=== PATIENT | female | born 1965 | race African-American/Black ===

== ENCOUNTER 2019-02-27 18:11 | Inpatient (IN) | payer OTHER ==
[2019-02-27 19:10] VITALS: BMI 31.7
[2019-02-27] MEDS ORDERED: IBUPROFEN 400 MG TABLET (FP) PO PRN (20:00)
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
[2019-02-27] MEDS ORDERED: HYDROCORTISONE 1% TOPICAL OINT 30 GM TUBE TP PRN (20:09)
[2019-02-27] MEDS ORDERED: ACETAMINOPHEN 325 MG TABLET (FP) PO PRN ×2 (21:18)
[2019-02-27] MEDS ORDERED: BISMUTH SUBSALICYLATE 524 MG/30 ML UD PO PRN (21:18)
[2019-02-27] MEDS ORDERED: hydrOXYzine PAMOATE 25 MG CAPSULE (FP) PO PRN (21:18)
[2019-02-27] MEDS ORDERED: LORazepam 1 MG TABLET PO PRN (21:18)
[2019-02-27] MEDS ORDERED: MELATONIN 5 MG TABLETS PO PRN (21:18)
[2019-02-27] MEDS ORDERED: MENTHOL/PHENOL 1 EACH UD MM PRN (21:18)
[2019-02-27] MEDS ORDERED: MAG HYDROX/AL HYDROX/SIMETH 30 ML UNIT-DOSE CUP PO PRN (21:18)
[2019-02-27] MEDS ORDERED: MAGNESIUM CITRATE 300 ML BOTTLE PO PRN (21:18)
[2019-02-27] MEDS ORDERED: MAGNESIUM HYDROX 2400MG/30ML ORAL SUSPENSION 30 ML CUP PO PRN (21:18)
--- NOTE | 2019-02-27 22:17 | PN ---
S Progress Note Note: Vital Signs Temperature 97.2 F L 02/27/19 19:38 Pulse Rate 87 02/27/19 19:38 Respiratory Rate 16 02/27/19 19:38 Blood Pressure 130/90 02/27/19 19:38 O2 Sat by Pulse Oximetry (%) EKG abnormal re: prolong QT BPM 78 QTc 460/524 asymptomatic repeat EKG in the AM d/c vistaril
[2019-02-27] MEDS: LORazepam 2 MG TABLET PO SCH (22:18)
[2019-02-27] MEDS: THIAMINE HCL 100 MG TABLET (FP) PO SCH (22:18)
[2019-02-27] MEDS: diphenhydrAMINE HCL 25 MG CAPSULE (FP) PO PRN (22:18)
[2019-02-27] MEDS: METHOCARBAMOL 500 MG TABLET PO PRN (22:19)
[2019-02-28] MEDS: LORazepam 2 MG TABLET PO SCH ×3 (06:19→20:44)
[2019-02-28 09:57] LABS: ALBUMIN 3.6 g/dl (3.4-5.0); ALK PHOS 85 U/L (45-117); ANION GAP 5 MMOL/L (8-16); BILIRUBIN,TOTAL 0.4 mg/dL (0.2-1); BLOOD UREA NITROGEN 21 mg/dL (7-18); CALCIUM 9.5 mg/dL (8.5-10.1); CHLORIDE 106 mmol/L (98-107); CO2 28 mmol/L (21-32); CREATININE 0.7 mg/dL (0.55-1.3); GLUCOSE,RANDOM 117 mg/dL (74-106); HEMATOCRIT 43.2 % (32.4-45.2); HEMOGLOBIN 14.2 GM/dL (10.7-15.3); MCH 28.5 pg (25.7-33.7); MCHC 32.9 g/dl (32.0-36.0); MEAN CELL VOLUME 86.6 fl (80-96); MEAN PLT VOLUME 8.4 fl (7.5-11.1); PLATELET COUNT 264 K/MM3 (134-434); POTASSIUM 4.2 mmol/L (3.5-5.1); RBC 4.99 M/mm3 (3.60-5.2); RDW 15.2 % (11.6-15.6); SGOT/AST 19 U/L (15-37); SGPT/ALT 19 U/L (13-61); SODIUM 139 mmol/L (136-145); TOT PROT 7.3 g/dl (6.4-8.2); WHITE BLOOD COUNT 3.7 K/mm3 (4.0-10.0)
[2019-02-28] MEDS: BUDESONIDE/FORMETEROL FUMARATE 160/4.5 mcg INHALER IH SCH ×2 (11:02→23:00)
[2019-02-28] MEDS: SULFAMETHOXAZOLE/TRIMETHOPRIM 800MG/160MG D.S. TABLET PO SCH (11:03)
[2019-02-28] MEDS: PRENATAL VITAMINS W/ FOLIC ACID TABLET (FP) PO SCH (11:03)
--- NOTE | 2019-02-28 11:33 | PN ---
BHS Progress Note Note: pt refused her repeat EKG; pt states her ekg is always abnormal. pt signed a refusal form.
--- NOTE | 2019-02-28 11:34 | PN ---
[facility] CIWA - CIWA Score Nausea/Vomitin-No Nausea/No Vomiting Muscle Tremors: 3 Anxiety: 3 Agitation: 3 Paroxysmal Sweats: 2 Orientation: 0-Oriented Tacttile Disturbances: 0-None Auditory Disturbances: 0-None Visual Disturbances: 0-None Headache: 0-None Present CIWA-Ar Total Score: 11 [facility] Progress Note (SOAP) Subjective: tired sleepy sweats agitation interrupted sleep Objective: 02/28/19 11:34 Vital Signs Temperature 97.7 F 02/28/19 09:03 Pulse Rate 90 02/28/19 09:03 Respiratory Rate 18 02/28/19 09:03 Blood Pressure 150/75 02/28/19 09:03 O2 Sat by Pulse Oximetry (%) Laboratory Tests 02/28/19 02/28/19 02/28/19 06:00 06:00 06:00 WBC 3.7 L RBC 4.99 Hgb 14.2 Hct 43.2 MCV 86.6 MCH 28.5 MCHC 32.9 RDW 15.2 Plt Count 264 MPV 8.4 Sodium 139 Potassium 4.2 Chloride 106 Carbon Dioxide 28 Anion Gap 5 L BUN 21 H Creatinine 0.7 Creat Clearance w eGFR 88.22 Random Glucose 117 H Calcium 9.5 Total Bilirubin 0.4 AST 19 ALT 19 Alkaline Phosphatase 85 Total Protein 7.3 Albumin 3.6 RPR Titer Nonreactive aaox3 ambulating no acute distress Assessment: 02/28/19 11:34 withdrawal sx Plan: continue detox increase fluids
[2019-02-28] MEDS: IBUPROFEN 400 MG TABLET (FP) PO PRN ×2 (13:31→23:49)
[2019-02-28] MEDS: METHOCARBAMOL 500 MG TABLET PO PRN ×2 (13:32→20:45)
[2019-02-28 13:54] LABS: EPI CELLS >36 /HPF (0-5/HPF); PH,URINE 5.5 (5.0-8.0); URINE APPEARANCE CLEAR; URINE BACTERIA 15.4 /hpf (NEGATIVE); URINE BILIRUBIN NEGATIVE (NEGATIVE); URINE CASTS 26 /hpf (0-8); URINE COLOR DK YELLOW; URINE GLUCOSE (UA) NEGATIVE (NEGATIVE); URINE KETONE 1+ (NEGATIVE); URINE LEUK ESTERASE TRACE (NEGATIVE); URINE NITRITE NEGATIVE (NEGATIVE); URINE PROTEIN NEGATIVE (NEGATIVE); URINE RBC 6 /hpf (0-4); URINE UROBILINOGEN 0.2 mg/dL (0.2-1.0); URINE WBC 28 /hpf (0-5)
[2019-02-28 14:37] LABS: URINE CRYSTALS CA OX SEEN /hpf
[2019-02-28 14:38] LABS: YEAST YEAST SEEN (NEGATIVE)
[2019-02-28] MEDS: LORazepam 1 MG TABLET PO SCH (23:00)
[2019-02-28] MEDS: THIAMINE HCL 100 MG TABLET (FP) PO SCH (23:01)
[2019-03-01] MEDS: LORazepam 1 MG TABLET PO SCH ×3 (06:00→17:36)
[2019-03-01] MEDS: METHOCARBAMOL 500 MG TABLET PO PRN ×2 (06:49→22:19)
[2019-03-01] MEDS: PRENATAL VITAMINS W/ FOLIC ACID TABLET (FP) PO SCH (10:36)
[2019-03-01] MEDS: BUDESONIDE/FORMETEROL FUMARATE 160/4.5 mcg INHALER IH SCH ×2 (10:36→22:00)
[2019-03-01] MEDS: SULFAMETHOXAZOLE/TRIMETHOPRIM 800MG/160MG D.S. TABLET PO SCH (10:39)
--- NOTE | 2019-03-01 11:14 | PN ---
S CIWA - CIWA Score Nausea/Vomitin-No Nausea/No Vomiting Muscle Tremors: 4-Moderate,w/Arms Extend Anxiety: 2 Agitation: 3 Paroxysmal Sweats: 3 Orientation: 0-Oriented Tacttile Disturbances: 0-None Auditory Disturbances: 0-None Visual Disturbances: 0-None Headache: 0-None Present CIWA-Ar Total Score: 12 S Progress Note (SOAP) Subjective: sweats low back pain interrupted sleep agitation Objective: 03/01/19 11:14 Vital Signs Temperature 97.7 F 03/01/19 09:20 Pulse Rate 80 03/01/19 09:20 Respiratory Rate 18 03/01/19 09:20 Blood Pressure 142/88 03/01/19 09:20 O2 Sat by Pulse Oximetry (%) Laboratory Tests 02/27/19 02/28/19 02/28/19 00:00 06:00 06:00 WBC 3.7 L RBC 4.99 Hgb 14.2 Hct 43.2 MCV 86.6 MCH 28.5 MCHC 32.9 RDW 15.2 Plt Count 264 MPV 8.4 Sodium 139 Potassium 4.2 Chloride 106 Carbon Dioxide 28 Anion Gap 5 L BUN 21 H Creatinine 0.7 Creat Clearance w eGFR 88.22 Random Glucose 117 H Calcium 9.5 Total Bilirubin 0.4 AST 19 ALT 19 Alkaline Phosphatase 85 Total Protein 7.3 Albumin 3.6 Urine Color Dk yellow Urine Appearance Clear Urine pH 5.5 Ur Specific [place] 1.028 Urine Protein Negative Urine Glucose (UA) Negative Urine Ketones 1+ H Urine Blood Negative Urine Nitrite Negative Urine Bilirubin Negative Urine Urobilinogen 0.2 Ur Leukocyte Esterase Trace Urine WBC (Auto) 28 Urine RBC (Auto) 6 Urine Casts (Auto) 26 U Pathogenic Cast Auto None seen U Epithel Cells (Auto) >36 Urine Crystals (Auto) Ca ox seen Urine Bacteria (Auto) 15.4 Urine Yeast (Auto) Yeast seen RPR Titer 02/28/19 06:00 WBC RBC Hgb Hct MCV MCH MCHC RDW Plt Count MPV Sodium Potassium Chloride Carbon Dioxide Anion Gap BUN Creatinine Creat Clearance w eGFR Random Glucose Calcium Total Bilirubin AST ALT Alkaline Phosphatase Total Protein Albumin Urine Color Urine Appearance Urine pH Ur Specific [place] Urine Protein Urine Glucose (UA) Urine Ketones Urine Blood Urine Nitrite Urine Bilirubin Urine Urobilinogen Ur Leukocyte Esterase Urine WBC (Auto) Urine RBC (Auto) Urine Casts (Auto) U Pathogenic Cast Auto U Epithel Cells (Auto) Urine Crystals (Auto) Urine Bacteria (Auto) Urine Yeast (Auto) RPR Titer Nonreactive aaox3 ambulating no acute distress Assessment: 03/01/19 11:17 withdrawal sx Plan: continue detox increase fluids lidocaine patch
[2019-03-01] MEDS ORDERED: LIDOCAINE 5% TOPICAL PATCH TP ONE (11:30)
[2019-03-01] MEDS: THIAMINE HCL 100 MG TABLET (FP) PO SCH (22:00)
[2019-03-01] MEDS ORDERED: LIDOCAINE PATCH REMOVAL MC SCH (22:00)
[2019-03-01] MEDS: LORazepam 0.5 MG TABLET PO SCH (22:00)
[2019-03-01] MEDS: IBUPROFEN 400 MG TABLET (FP) PO PRN (22:19)
[2019-03-01] MEDS: diphenhydrAMINE HCL 25 MG CAPSULE (FP) PO PRN (22:21)
[2019-03-01] MEDS ORDERED: LORazepam 0.5 MG TABLET PO PRN (23:00)
[2019-03-02] MEDS: LORazepam 0.5 MG TABLET PO SCH (07:10)
[2019-03-02 07:13] VITALS: BP 144/102; PULSE 75; TEMP 97.7
[2019-03-02] MEDS: SULFAMETHOXAZOLE/TRIMETHOPRIM 800MG/160MG D.S. TABLET PO SCH (09:01)
[2019-03-02] MEDS ORDERED: LIDOCAINE 5% TOPICAL PATCH TP SCH (10:00)
--- NOTE | 2019-03-02 10:26 | EKG ---
Test Reason : Blood Pressure : / mmHG Vent. Rate : 078 BPM Atrial Rate : 078 BPM P-R Int : 154 ms QRS Dur : 094 ms QT Int : 460 ms P-R-T Axes : 071 068 048 degrees QTc Int : 524 ms NORMAL SINUS RHYTHM POSSIBLE LEFT ATRIAL ENLARGEMENT LEFT VENTRICULAR HYPERTROPHY PROLONGED QT ABNORMAL ECG NO PREVIOUS ECGS AVAILABLE Confirmed by DEVONTE CONDE MD ([id number]) on 03/02/2019 10:26:21 AM Referred By: Confirmed By:DEVONTE CONDE MD
--- NOTE | 2019-03-02 10:52 | DS ---
[facility] Detox Discharge Summary Admission Date: 02/27/19 Discharge Date: 03/02/19 - History Present History: Alcohol Dependence, Cocaine Dependence - Physical Exam Results Vital Signs: Vital Signs Temperature 97.7 F 03/02/19 07:00 Pulse Rate 75 03/02/19 07:00 Respiratory Rate 18 03/02/19 07:00 Blood Pressure 144/102 H 03/02/19 07:00 O2 Sat by Pulse Oximetry (%) - Treatment Hospital Course: Detox Protocol Followed, Detoxed Safely, Responded well, Discharged Condition Good, Rehab Referral Accepted - Medication Discharge Medications: Ambulatory Orders Amlodipine Besylate/Benazepril [Lotrel 5-10 mg Capsule] 1 each PO DAILY Budesonide/Formeterol Fumarate [SYMBICORT 160/4.5mcg -] 1 puff PO PRN 02/27/19 Bupropion HCl [Wellbutrin -] 150 mg PO DAILY 02/27/19 Clonidine HCl [Catapres] 0.2 mg PO DAILY 02/27/19 Diphenhydramine [Benadryl -] 25 mg PO PRN 02/27/19 Esomeprazole Magnesium 40 mg PO DAILY 02/27/19 Ibuprofen 800 mg PO PRN 02/27/19 Meclizine HCl 25 mg PO DAILY 02/27/19 Methimazole 5 mg PO DAILY 02/27/19 Multivitamins [Tab-A-Vit -] 1 tab PO DAILY 02/27/19 Nitrofurantoin Macrocrystal [Macrodantin] 100 mg PO BID 02/27/19 - Diagnosis (1) Alcohol dependence with uncomplicated withdrawal Status: Chronic (2) Cocaine dependence Status: Chronic Qualifiers: Substance use status: uncomplicated Qualified Code(s): F14.20 - Cocaine dependence, uncomplicated (3) Cystitis Status: Acute (4) Low back pain Status: Acute Qualifiers: Chronicity: acute (5) COPD (chronic obstructive pulmonary disease) Status: Chronic Qualifiers: COPD type: unspecified COPD Qualified Code(s): J44.9 - Chronic obstructive pulmonary disease, unspecified (6) Essential (primary) hypertension Status: Chronic (7) GERD (gastroesophageal reflux disease) Status: Chronic (8) Gout Status: Chronic Qualifiers: Gout site: unspecified site Chronicity: unspecified - AMA Did Patient Leave Against Medical Advice: No (declined rehab; going home.)
== END 2019-03-02 09:20 | disposition home or self-care (01) | DRG 774 ==
LOC: YASAS 18:11 → Y6N 21:31
PROVIDERS: ADMIT Surgery; ATTEND Surgery
PROC: HZ2ZZZZ Detoxification Services for Substance Abuse Treatment (ICD-10-PCS; principal; 2019-02-27)
DX: F10.230 Alcohol dependence with withdrawal, uncomplicated (principal); F14.20 Cocaine dependence, uncomplicated; I10 Essential (primary) hypertension; N30.00 Acute cystitis without hematuria; M54.5 Low back pain; J44.9 Chronic obstructive pulmonary disease, unspecified; M10.9 Gout, unspecified; I45.81 Long QT syndrome; R94.31 Abnormal electrocardiogram [ECG] [EKG]; R73.03 Prediabetes; E05.90 Thyrotoxicosis, unspecified without thyrotoxic crisis or storm; K21.9 Gastro-esophageal reflux disease without esophagitis; R16.0 Hepatomegaly, not elsewhere classified; Z87.42 Personal history of other diseases of the female genital tract; Z91.5 Personal history of self-harm
CPT/HCPCS: 36415; 71046-TC-FY; 80053; 81003; 85027; 86593; 93005; 93010

== ENCOUNTER 2019-04-20 09:45 | Inpatient (IN) | payer OTHER ==
[2019-04-20 10:55] VITALS: BMI 32.8
--- NOTE | 2019-04-20 12:11 | HP ---
CIWA Score Nausea/Vomitin Muscle Tremors: None Anxiety: 4-Mod. Anxious/Guarded Agitation: 1-Slight > Activity Paroxysmal Sweats: 2 Orientation: 0-Oriented Tacttile Disturbances: 1-Very Mild Itch/Numbness Auditory Disturbances: 0-None Visual Disturbances: 2-Mild Sensitivity Headache: 2-Mild CIWA-Ar Total Score: 14 - Admission Criteria OASAS Guidelines: Admission for Medically Managed Detox: Requires at least one of the followin. CIWA greater than 12 2. Seizures within the past 24 hours 3. Delirium tremens within the past 24 hours 4. Hallucinations within the past 24 hours 5. Acute intervention needed for co occurring medical disorder 6. Acute intervention needed for co occurring psychiatric disorder 7. Severe withdrawal that cannot be handled at a lower level of care (continued vomiting, continued diarrhea, abnormal vital signs) requiring intravenous medication and/or fluids 8. Admission ROS BHS - HPI Allergies/Adverse Reactions: Allergies Allergy/AdvReac Type Severity Reaction Status Date / Time No Known Drug Allergies Allergy Verified 04/20/19 13:41 nitrofurantoin AdvReac Severe Rash Verified 04/20/19 10:41 History of Present Illness: pt here requesting detox from etoh use , reports 6-pk/day , current symptoms as above . PMHX: HTN. COPD, Scoliosis, GERD, Gout, pre-diabetes. 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[facility]) GI: reports: See HPI, Poor Appetite : reports: No Symptoms Reported Musculoskeletal: reports: Other (scoliosis , reports chronic pain in feet .) Integumentary: reports: No Symptoms Reported Neuro: reports: Headache, Dizziness Endocrine: reports: No Symptoms Reported Psychiatric: reports: Orientated x3 Patient History - Patient Medical History Hx Anemia: No Hx Asthma: Yes Hx Chronic Obstructive Pulmonary Disease (COPD): Yes Hx Cancer: No Hx Cardiac Disorders: Yes (Prolong QT, LINCQ) Hx Congestive Heart Failure: No Hx Hypertension: Yes Hx Hypercholesterolemia: No Hx Pacemaker: No HX Cerebrovascular Accident: No Hx Seizures: No Hx Dementia: No Hx Diabetes: Yes (Pre-diabetes ) Hx Gastrointestinal Disorders: Yes (GERD) Hx Liver Disease: Yes ("Liver Enlarge") Hx Genitourinary Disorders: No Hx Sexually Transmitted Disorders: Yes (Herpes ) Hx Renal Disease (ESRD): No Hx Thyroid Disease: Yes (hyperthyroid) Hx Human Immunodeficiency Virus (HIV): No Hx Hepatitis C: No Hx Depression: No Hx Suicide Attempt: Yes (20 years ago ) Hx Bipolar Disorder: Yes Hx Schizophrenia: No - Patient Surgical History Past Surgical History: Yes Hx Neurologic Surgery: No Hx Cataract Extraction: No Hx Cardiac Surgery: No Hx Lung Surgery: No Hx Breast Surgery: No Hx Breast Biopsy: No Hx Abdominal Surgery: No Hx Appendectomy: No Hx Cholecystectomy: No Hx Genitourinary Surgery: No Hx Section: No Hx Orthopedic Surgery: No Other Surgical History: LEED Procedure, LINCQ Anesthesia Reaction: No - Smoking Cessation Smoking history: Current every day smoker Have you smoked in the past 12 months: Yes Aproximately how many cigarettes per day: 10 Hx Chewing Tobacco Use: No Initiated information on smoking cessation: No - Substances abused Alcohol Substance route: Oral Frequency: Daily Amount used: 1.5 six pack, 2 pints Age of first use: 16 Date of last use: 04/19/19 Crack Substance route: Smoking Frequency: 1-3 times last 30 days Amount used: $80-100 Age of first use: 16 Date of last use: 04/19/19 Family Disease History - Family Disease History Family Disease History: Diabetes: Grandparent Admission Physical Exam S - Vital Signs Vital Signs: Vital Signs - 24 hr 04/20/19 04/20/19 10:48 11:17 Temperature 97.0 F L 97.0 F L - Physical General Appearance: Yes: Disheveled, Mild Distress, Intoxicated HEENTM: Yes: EOMI, Hearing grossly Normal, Normocephalic, Muffled/Hoarse Voice, Other Respiratory: Yes: Chest Non-Tender, Lungs Clear, Normal Breath Sounds, No Respiratory Distress, No Accessory Muscle Use Neck: Yes: No masses,lesions,Nodules, Trachea in good position, Thyroid enlarged Cardiology: Yes: Regular Rhythm, Regular Rate, S1, S2 Abdominal: Yes: Non Tender, Soft Back: Yes: Other (scoliosis) Musculoskeletal: Yes: Other (resting in bed / stretcher) Extremities: Yes: Non-Tender Neurological: Yes: Motor Strength 5/5 Integumentary: Yes: Warm - Diagnostic (1) Alcohol dependence with uncomplicated withdrawal Current Visit: Yes Status: Acute Breathalyzer - Breathalyzer Breathalyzer: 0.072 POC Urine test - Test device test lot number: [id number] Expiration date: 07/21/20 - Control test control: Yes Urine Drug Screen - Test Device Lot number: [id number] Expiration date: 01/18/19 - Control Is test valid?: Yes - Results Drug screen NEGATIVE: No Urine drug screen results: THC-Marijuana, OLI-Cocaine, BZO-Benzodiazepines Inpatient Rehab Admission - Rehab Decision to Admit Inpatient rehab admission?: No
[2019-04-20] MEDS ORDERED: BISMUTH SUBSALICYLATE 262 MG/15 ML BTL PO PRN (12:29)
[2019-04-20] MEDS ORDERED: IBUPROFEN 400 MG TABLET (FP) PO PRN (12:29)
[2019-04-20] MEDS ORDERED: ACETAMINOPHEN 325 MG TABLET (FP) PO PRN ×2 (12:29)
[2019-04-20] MEDS ORDERED: MAGNESIUM CITRATE 300 ML BOTTLE PO PRN (12:29)
[2019-04-20] MEDS ORDERED: diazePAM 5 MG TABLET PO PRN (12:29)
[2019-04-20] MEDS ORDERED: MAGNESIUM HYDROX 2400MG/30ML ORAL SUSPENSION 30 ML CUP PO PRN (12:29)
[2019-04-20] MEDS ORDERED: MENTHOL/PHENOL 1 EACH UD MM PRN (12:29)
[2019-04-20] MEDS: MECLIZINE HCL 25 MG TABLET (FP) PO SCH ×2 (14:28→22:12)
[2019-04-20] MEDS: diazePAM 5 MG TABLET PO SCH ×2 (14:28→22:13)
--- NOTE | 2019-04-20 19:54 | PN ---
S Progress Note Note: Psychiatric nurse pracitioner note: Delayed note: Compliance Engineer attempted to conduct psychiatric consultation at 5:00pm but patient was sleeping and was difficult to awaken. Psychiatric consultation deferred. Patient to be seen tomorrow morning.
[2019-04-20] MEDS ORDERED: ALBUTEROL SO4 0.083% IH SOL 2.5 MG/3 ML VIAL.NEB. NEB SCH (22:00)
[2019-04-20] MEDS: METHIMAZOLE 5 MG TABLET (FP) PO SCH (22:12)
[2019-04-20] MEDS: THIAMINE HCL 100 MG TABLET (FP) PO SCH (22:13)
[2019-04-20] MEDS: MELATONIN 5 MG TABLETS PO PRN (22:15)
[2019-04-21] MEDS ORDERED: ALBUTEROL SO4 0.083% IH SOL 2.5 MG/3 ML VIAL.NEB. NEB ONE (01:17)
[2019-04-21] MEDS ORDERED: ALBUTEROL SO4 8 GM HFA INHALER IH PRN ×2 (05:00→07:43)
[2019-04-21] MEDS ORDERED: ALBUTEROL SO4 2.5/IPRATROPIUM 0.5 INH SOL 3 ML VIAL.NEB. NEB PRN (05:00)
[2019-04-21] MEDS: diazePAM 5 MG TABLET PO SCH ×3 (06:19→22:39)
--- NOTE | 2019-04-21 07:54 | PN ---
[facility] Progress Note Note: SEEN FOR MILD WHEEZING AND SOB. CLIENT REPORTS HX/O COPD AND SLEEP APNEA. DENIES C.P.+ HX/O VERTIGO Vital Signs - 24 hr 04/20/19 04/20/19 04/20/19 10:48 10:50 11:17 Temperature 97.0 F L 97.0 F L 97.0 F L Pulse Rate 83 Respiratory 18 Rate Blood Pressure 119/81 04/20/19 04/20/19 04/20/19 12:50 13:56 18:07 Temperature 97.0 F L 97.0 F L 97.6 F Pulse Rate 83 83 80 Respiratory 18 18 18 Rate Blood Pressure 119/81 132/90 117/80 04/20/19 04/21/19 04/21/19 23:02 03:30 06:10 Temperature 96.4 F L 97.1 F L Pulse Rate 97 H 80 Respiratory 18 18 18 Rate Blood Pressure 104/70 125/85 SEEN LYING IN BED A/O X3, SOB BUT IN NO DISTRESS. ABLE TO SPEAK IN FULL SENTENCES W/O DIFFICULTY CV- LINQ CARDIAC DEVICE TO LEFT CHEST WALL (INTERNAL) RRR LUNGS- BILAT EXP WHEEZING WITH COARSE BREATH SOUNDS/ O2 SAT 96%RA A- COPD P- DUONEB Q6HR ORDERED RESTART HOME MED SYMBICORT ORDERED ALBUTEROL INH PRN CONT TO MONITOR
[2019-04-21] MEDS: LISINOPRIL 10 MG TABLET (FP) PO SCH (09:48)
[2019-04-21] MEDS: MECLIZINE HCL 25 MG TABLET (FP) PO SCH ×2 (09:48→22:40)
[2019-04-21] MEDS: PRENATAL VITAMINS W/ FOLIC ACID TABLET (FP) PO SCH (09:48)
[2019-04-21] MEDS: amLODIPine BESYLATE 5 MG TABLET (FP) PO SCH (09:48)
[2019-04-21] MEDS: METHIMAZOLE 5 MG TABLET (FP) PO SCH ×2 (09:48→22:40)
[2019-04-21] MEDS: IBUPROFEN 400 MG TABLET (FP) PO PRN ×2 (09:55→20:20)
--- NOTE | 2019-04-21 09:56 | CONSULT ---
[facility] Psychiatric Consult - Data Date of interview: 04/21/19 Admission source: [facility] Identifying data: Patient is a 53 year old single female, mother of four, unemployed, and currently homeless. This is one of multiple admissions to detox. Patient admitted to for alcohol, marijuana, and cocaine dependence. Substance Abuse History: Smoking Cessation. Smoking history: Current every day smoker. Have you smoked in the past 12 months: Yes. Aproximately how many cigarettes per day: 10. Hx Chewing Tobacco Use: No. Initiated information on smoking cessation: No. - Substances abused. Alcohol. Substance route: Oral. Frequency: Daily. Amount used: 1.5 six pack, 2 pints. Age of first use : 16. Date of last use: 04/19/19. Crack. Substance route: Smoking. Frequency: 1-3 times last 30 days. Amount used: $80-100. Age of first use: 16. Date of last use: 04/19/19 Medical History: Significant for hypertension, COPD, Scoliosis, GERD, Gout, pre- diabetes, hyperthyroid, h/o prolong QT Psychiatric History: Patient denies h/o psychiatric hospitalizations and suicide attempts. States she receives outpatient psychiatric care but is refusing to discuss the location where she receives care and the name of the provider. Patient walked into the facility with a prescription bottle of [place] 600mg BID + Wellbutrin 150mgXL. Prescriptions bottles were dispensed on 04/18/19. At present patient is lethargic, unwilling to fully cooperate with junior underwriter, and stated she did not want to take her psychotropic medications. Physical/Sexual Abuse/Trauma History: denies. Mental Status Exam - Mental Status Exam Alert and Oriented to: Time, Place, Person Cognitive Function: Good Patient Appearance: Well Groomed Mood: Withdrawn Affect: Mood Congruent Patient Behavior: Sedated, Fatigued Speech Pattern: Delayed Voice Loudness: Moderately Soft/Quiet Thought Process: Goal Oriented Thought Disorder: Not Present Hallucinations: Denies Suicidal Ideation: Denies Homicidal Ideation: Denies Insight/Judgement: Poor Sleep: Fair Appetite: Fair Muscle strength/Tone: Normal Gait/Station: Normal Psychiatric Findings - Problem List ([place] 1, 2,3) (1) Mood disorder Current Visit: Yes Status: Chronic (2) Alcohol dependence with uncomplicated withdrawal Current Visit: Yes Status: Acute (3) Cocaine dependence Current Visit: Yes Status: Chronic Qualifiers: Substance use status: uncomplicated Qualified Code(s): F14.20 - Cocaine dependence, uncomplicated - Initial Treatment Plan Initial Treatment Plan: Psychoeducation provided. Detoxification in progress. Patient refusing to resume Wellbutrin 150mg XL + [place] 600mg BID. [place] level pending. Observation.
[2019-04-21] MEDS ORDERED: PATIENT'S OWN MEDICATION (NON-FORMULARY) (Amlodipine Besylate/Benazepril [Lotrel 5-10 Mg C PO SCH (10:00)
[2019-04-21] MEDS: BUDESONIDE/FORMETEROL FUMARATE 160/4.5 mcg INHALER IH SCH ×2 (10:11→22:42)
[2019-04-21 10:42] LABS: HEMATOCRIT 42.8 % (32.4-45.2); HEMOGLOBIN 13.6 GM/dL (10.7-15.3); MCHC 31.9 g/dl (32.0-36.0); MEAN CELL VOLUME 87.7 fl (80-96); MEAN PLT VOLUME 8.5 fl (7.5-11.1); PLATELET COUNT 273 K/MM3 (134-434); RBC 4.88 M/mm3 (3.60-5.2); RDW 14.5 % (11.6-15.6); WHITE BLOOD COUNT 4.5 K/mm3 (4.0-10.0)
[2019-04-21] MEDS: ALBUTEROL SO4 2.5/IPRATROPIUM 0.5 INH SOL 3 ML VIAL.NEB. NEB SCH ×3 (11:41→20:23)
[2019-04-21 11:46] LABS: ALBUMIN 3.1 g/dl (3.4-5.0); BILIRUBIN,TOTAL 0.3 mg/dL (0.2-1); CALCIUM 9.3 mg/dL (8.5-10.1); CREATININE 0.7 mg/dL (0.55-1.3); POTASSIUM 4.5 mmol/L (3.5-5.1); TOT PROT 6.2 g/dl (6.4-8.2)
[2019-04-21] MEDS ORDERED: LIDOCAINE VISCOUS 2% ORAL/TOP 20 ML UNIT-DOSE CUP MM PRN (13:33)
--- NOTE | 2019-04-21 17:11 | PN ---
[facility] CIWA - CIWA Score Nausea/Vomitin-No Nausea/No Vomiting Muscle Tremors: None Anxiety: 4-Mod. Anxious/Guarded Agitation: 1-Slight > Activity Paroxysmal Sweats: 1-Minimal Palms Moist Orientation: 0-Oriented Tacttile Disturbances: 2-Mild Itch/Numbness/Burn Auditory Disturbances: 2-Mild Harshness/Frighten Visual Disturbances: 0-None Headache: 0-None Present CIWA-Ar Total Score: 10 S Progress Note (SOAP) Subjective: Body Aches, Anxious, Sweating. Objective: PATIENT A & O X 3, OBSERVED AMBULATING ON UNIT UNASSISTED. IN NO ACUTE DISTRESS. 04/21/19 17:12 Vital Signs Temperature 98.1 F 04/21/19 13:53 Pulse Rate 84 04/21/19 13:53 Respiratory Rate 18 04/21/19 13:53 Blood Pressure 126/88 04/21/19 13:53 O2 Sat by Pulse Oximetry (%) Laboratory Tests 04/21/19 04/21/19 07:35 07:35 WBC 4.5 RBC 4.88 Hgb 13.6 Hct 42.8 MCV 87.7 MCH 28.0 MCHC 31.9 L RDW 14.5 Plt Count 273 MPV 8.5 Sodium 141 Potassium 4.5 Chloride 106 Carbon Dioxide 25 Anion Gap 10 BUN 26 H Creatinine 0.7 Est GFR (CKD-EPI)AfAm 116.27 Est GFR (CKD-EPI)NonAf 100.32 Random Glucose 68 L Calcium 9.3 Total Bilirubin 0.3 AST 12 L ALT 16 Alkaline Phosphatase 86 Total Protein 6.2 L Albumin 3.1 L LABS NOTED. RPR, LITHIUM LEVEL RESULTS PENDING. Assessment: 04/21/19 17:12 WITHDRAWAL SYMPTOMS. ELEVATED BUN LEVEL. 04/21/19 17:13 Plan: CONTINUE DETOX. INCREASE DAILY PO FLUID / WATER INTAKE. PRN FLEXERIL PO FOR BODY ACHES / MUSCLE SPASMS.
[2019-04-21] MEDS: MAG HYDROX/AL HYDROX/SIMETH 30 ML UNIT-DOSE CUP PO PRN (20:21)
[2019-04-21] MEDS: THIAMINE HCL 100 MG TABLET (FP) PO SCH (22:38)
[2019-04-22] MEDS: IBUPROFEN 400 MG TABLET (FP) PO PRN ×3 (04:02→17:27)
[2019-04-22] MEDS ORDERED: diazePAM 5 MG TABLET PO ONE (06:00)
[2019-04-22] MEDS: ALBUTEROL SO4 2.5/IPRATROPIUM 0.5 INH SOL 3 ML VIAL.NEB. NEB SCH ×4 (07:51→22:22)
[2019-04-22] MEDS: MECLIZINE HCL 25 MG TABLET (FP) PO SCH ×2 (10:18→22:14)
[2019-04-22] MEDS: PRENATAL VITAMINS W/ FOLIC ACID TABLET (FP) PO SCH (10:19)
[2019-04-22] MEDS: amLODIPine BESYLATE 5 MG TABLET (FP) PO SCH (10:19)
[2019-04-22] MEDS: LISINOPRIL 10 MG TABLET (FP) PO SCH (10:20)
[2019-04-22] MEDS: BUDESONIDE/FORMETEROL FUMARATE 160/4.5 mcg INHALER IH SCH ×2 (10:22→22:47)
[2019-04-22] MEDS: CYCLOBENZAPRINE HCL 5 MG TABLET PO PRN ×2 (10:39→18:40)
--- NOTE | 2019-04-22 10:42 | PN ---
[facility] CIWA - CIWA Score Nausea/Vomitin-No Nausea/No Vomiting Muscle Tremors: 3 Anxiety: 2 Agitation: 0-Normal Activity Paroxysmal Sweats: 2 Orientation: 0-Oriented Tacttile Disturbances: 0-None Auditory Disturbances: 0-None Visual Disturbances: 0-None Headache: 0-None Present CIWA-Ar Total Score: 7 S Progress Note (SOAP) Subjective: shakes back pain sweats requesting cane for ambulation Objective: 04/22/19 10:38 A & O X3 ambulates slowly slight tremors Vital Signs Temperature 97 F L 04/22/19 09:52 Pulse Rate 86 04/22/19 09:52 Respiratory Rate 18 04/22/19 09:52 Blood Pressure 129/91 04/22/19 09:52 O2 Sat by Pulse Oximetry (%) Assessment: 04/22/19 10:39 withdrawal symptoms chronic back pain Plan: continue detox continue prn meds for pain cane ordered for ambulation for discharge tomorrow
[2019-04-22] MEDS: METHIMAZOLE 5 MG TABLET (FP) PO SCH ×2 (10:55→22:47)
[2019-04-22] MEDS ORDERED: LIDOCAINE 5% TOPICAL PATCH TP SCH (13:45)
--- NOTE | 2019-04-22 15:41 | EKG ---
Test Reason : Blood Pressure : / mmHG Vent. Rate : 082 BPM Atrial Rate : 082 BPM P-R Int : 148 ms QRS Dur : 092 ms QT Int : 458 ms P-R-T Axes : 072 075 060 degrees QTc Int : 535 ms NORMAL SINUS RHYTHM NONSPECIFIC T WAVE ABNORMALITY PROLONGED QT ABNORMAL ECG WHEN COMPARED WITH ECG OF 27-FEB-2019 20:43, NO SIGNIFICANT CHANGE WAS FOUND Confirmed by VALERIY HAMMOND MD ([id number]) on 04/22/2019 3:41:29 PM Referred By: Confirmed By:VALERIY HAMMOND MD
[2019-04-22] MEDS: hydrOXYzine PAMOATE 25 MG CAPSULE (FP) PO PRN ×2 (17:27→22:15)
[2019-04-22] MEDS: MAG HYDROX/AL HYDROX/SIMETH 30 ML UNIT-DOSE CUP PO PRN (17:28)
[2019-04-22] MEDS ORDERED: LIDOCAINE PATCH REMOVAL MC SCH (22:00)
[2019-04-22] MEDS: THIAMINE HCL 100 MG TABLET (FP) PO SCH (22:14)
[2019-04-22] MEDS: MELATONIN 5 MG TABLETS PO PRN (22:15)
[2019-04-23] MEDS: IBUPROFEN 400 MG TABLET (FP) PO PRN ×2 (02:10→09:36)
[2019-04-23] MEDS: CYCLOBENZAPRINE HCL 5 MG TABLET PO PRN (02:11)
[2019-04-23] MEDS: ALBUTEROL SO4 2.5/IPRATROPIUM 0.5 INH SOL 3 ML VIAL.NEB. NEB SCH (07:50)
[2019-04-23 09:21] VITALS: BP 125/90; PULSE 98; TEMP 98.3
[2019-04-23] MEDS: BUDESONIDE/FORMETEROL FUMARATE 160/4.5 mcg INHALER IH SCH (09:36)
[2019-04-23] MEDS: amLODIPine BESYLATE 5 MG TABLET (FP) PO SCH (09:37)
[2019-04-23] MEDS: LISINOPRIL 10 MG TABLET (FP) PO SCH (09:37)
[2019-04-23] MEDS: METHIMAZOLE 5 MG TABLET (FP) PO SCH (09:37)
--- NOTE | 2019-04-23 14:18 | DS ---
[facility] Detox Discharge Summary Admission Date: 04/20/19 Discharge Date: 04/23/19 - History Present History: Alcohol Dependence Additional Comments: 53 years old female admitted on 04/20/19 for alcohol withdrawal stabilization completed detox regimen aftercare [facility] Pertinent Past History: bring in medication list and lab report to [facility] - Physical Exam Results Vital Signs: Vital Signs Temperature 98.3 F 04/23/19 09:20 Pulse Rate 98 H 04/23/19 09:20 Respiratory Rate 18 04/23/19 09:20 Blood Pressure 125/90 04/23/19 09:20 O2 Sat by Pulse Oximetry (%) Pertinent Admission Physical Exam Findings: alcohol withdrawal sx Laboratory Last Values WBC 4.5 K/mm3 (4.0-10.0) 04/21/19 07:35 RBC 4.88 M/mm3 (3.60-5.2) 04/21/19 07:35 Hgb 13.6 GM/dL (10.7-15.3) 04/21/19 07:35 Hct 42.8 % (32.4-45.2) 04/21/19 07:35 MCV 87.7 fl (80-96) 04/21/19 07:35 MCH 28.0 pg (25.7-33.7) 04/21/19 07:35 MCHC 31.9 g/dl (32.0-36.0) L 04/21/19 07:35 RDW 14.5 % (11.6-15.6) 04/21/19 07:35 Plt Count 273 K/MM3 (134-434) 04/21/19 07:35 MPV 8.5 fl (7.5-11.1) 04/21/19 07:35 Sodium 141 mmol/L (136-145) 04/21/19 07:35 Potassium 4.5 mmol/L (3.5-5.1) 04/21/19 07:35 Chloride 106 mmol/L (98-107) 04/21/19 07:35 Carbon Dioxide 25 mmol/L (21-32) 04/21/19 07:35 Anion Gap 10 MMOL/L (8-16) 04/21/19 07:35 BUN 26 mg/dL (7-18) H 04/21/19 07:35 Creatinine 0.7 mg/dL (0.55-1.3) 04/21/19 07:35 Est GFR (CKD-EPI)AfAm 116.27 04/21/19 07:35 Est GFR (CKD-EPI)NonAf 100.32 04/21/19 07:35 Random Glucose 68 mg/dL (74-106) L 04/21/19 07:35 Calcium 9.3 mg/dL (8.5-10.1) 04/21/19 07:35 Total Bilirubin 0.3 mg/dL (0.2-1) 04/21/19 07:35 AST 12 U/L (15-37) L 04/21/19 07:35 ALT 16 U/L (13-61) 04/21/19 07:35 Alkaline Phosphatase 86 U/L (45-117) 04/21/19 07:35 Total Protein 6.2 g/dl (6.4-8.2) L 04/21/19 07:35 Albumin 3.1 g/dl (3.4-5.0) L 04/21/19 07:35 POC Urine HCG, Qual Negative 04/20/19 11:20 [place] 0.2 MEQ/L (0.6-1.2) L 04/21/19 08:50 RPR Titer Nonreactive (NONREACTIVE) 04/21/19 07:35 lab noted - Treatment Hospital Course: Detox Protocol Followed, Detoxed Safely, Responded well, Discharged Condition Good, Rehab Referral Accepted Patient has Accepted a Rehab Referral to: care counseling center - Medication Discharge Medications: Ambulatory Orders Amlodipine Besylate/Benazepril [Lotrel 5-10 mg Capsule] 1 each PO DAILY Budesonide/Formeterol Fumarate [SYMBICORT 160/4.5mcg -] 1 puff PO PRN 02/27/19 Clonidine HCl [Catapres] 0.2 mg PO DAILY 02/27/19 Diphenhydramine [Benadryl Capsule -] 25 mg PO PRN 02/27/19 Esomeprazole Magnesium 40 mg PO DAILY 02/27/19 Ibuprofen 800 mg PO PRN 02/27/19 Meclizine HCl 50 mg PO BID 02/27/19 Methimazole 5 mg PO TID 02/27/19 Multivitamins [Multivit ([facility] Formulary)] 1 tab PO DAILY 02/27/19 Albuterol 0.083% Nebulizer Marlena [Ventolin 0.083% Nebulizer Soln -] 1 neb NEB BID 04/20/19 Albuterol Sulfate Inhaler - [Ventolin HFA Inhaler -] 2 inh PO Q4H PRN 04/21/19 - Diagnosis (1) Substance induced mood disorder Status: Suspected (2) Alcohol dependence with uncomplicated withdrawal Status: Acute (3) COPD (chronic obstructive pulmonary disease) Status: Chronic Qualifiers: COPD type: unspecified COPD Qualified Code(s): J44.9 - Chronic obstructive pulmonary disease, unspecified (4) Essential (primary) hypertension Status: Chronic (5) GERD (gastroesophageal reflux disease) Status: Chronic Qualifiers: Esophagitis presence: without esophagitis Qualified Code(s): K21.9 - Gastro -esophageal reflux disease without esophagitis - AMA Did Patient Leave Against Medical Advice: No
== END 2019-04-23 09:45 | disposition home or self-care (01) | DRG 774 ==
LOC: YASAS 09:45 → Y3N 12:35
PROVIDERS: ADMIT Surgery; ATTEND Surgery
PROC: HZ2ZZZZ Detoxification Services for Substance Abuse Treatment (ICD-10-PCS; principal; 2019-04-20)
DX: F10.230 Alcohol dependence with withdrawal, uncomplicated (principal); F14.20 Cocaine dependence, uncomplicated; F39 Unspecified mood [affective] disorder; F31.9 Bipolar disorder, unspecified; J44.9 Chronic obstructive pulmonary disease, unspecified; I10 Essential (primary) hypertension; K21.9 Gastro-esophageal reflux disease without esophagitis; M10.9 Gout, unspecified; R73.03 Prediabetes; E05.90 Thyrotoxicosis, unspecified without thyrotoxic crisis or storm; R94.4 Abnormal results of kidney function studies; Z86.19 Personal history of other infectious and parasitic diseases
CPT/HCPCS: 36415; 80053; 80178; 81025; 85027; 86593; 93005; 93010; 94640

== ENCOUNTER 2019-05-20 09:22 | Inpatient (IN) | payer OTHER ==
[2019-05-20 10:14] VITALS: BMI 33.5
--- NOTE | 2019-05-20 13:12 | HP ---
CIWA Score Nausea/Vomitin-Mild Nausea/No Vomiting Muscle Tremors: 4-Moderate,w/Arms Extend Anxiety: 4-Mod. Anxious/Guarded Agitation: 0-Normal Activity Paroxysmal Sweats: 2 Orientation: 0-Oriented Tacttile Disturbances: 0-None Auditory Disturbances: 0-None Visual Disturbances: 0-None Headache: 4-Moderately Severe CIWA-Ar Total Score: 15 - Admission Criteria OASAS Guidelines: Admission for Medically Managed Detox: Requires at least one of the followin. CIWA greater than 12 2. Seizures within the past 24 hours 3. Delirium tremens within the past 24 hours 4. Hallucinations within the past 24 hours 5. Acute intervention needed for co occurring medical disorder 6. Acute intervention needed for co occurring psychiatric disorder 7. Severe withdrawal that cannot be handled at a lower level of care (continued vomiting, continued diarrhea, abnormal vital signs) requiring intravenous medication and/or fluids 8. Admission ROS [facility] Chief Complaint: Alcohol withdrawal symptoms Allergies/Adverse Reactions: Allergies Allergy/AdvReac Type Severity Reaction Status Date / Time No Known Drug Allergies Allergy Verified 05/20/19 10:01 nitrofurantoin AdvReac Severe Rash Verified 05/20/19 10:01 History of Present Illness: 53 years old female with a long history of alcohol dependence is seeking admission to detox. Patient has been in previous detox, last at [facility] 04/20/2019- 04/23/2019. She reports that she had a blackout 3 days ago and was at [facility] emergency room and left because she was in a room with non functional air conditioner. She has medical history of asthma, COPD, scoliosis, herpes, hypertension, hyperthroidism, TB ([facility] ), vertigo, GERD, gout and anxiety. She reports suicide attempt at age 23, and denies suicidal ideation at this time. Patient has a history of prolonged QT with LINCQ in place . Exam Limitations: No Limitations - Ebola screening Have you traveled outside of the country in the last 21 days: No (N) Have you had contact with anyone from an Ebola affected area: No Do you have a fever: No - Review of Systems Constitutional: Chills, Loss of Appetite, Malaise, Changes in sleep EENT: reports: Sinus Pressure Respiratory: reports: No Symptoms reported Cardiac: reports: No Symptoms Reported GI: reports: Constipated, Nausea, Poor Appetite, Poor Fluid Intake, Abdominal cramping : reports: No Symptoms Reported Musculoskeletal: reports: Back Pain, Gout, Muscle Pain Integumentary: reports: Dryness, Flushing Neuro: reports: Tremors Endocrine: reports: No Symptoms Reported Hematology: reports: No Symptoms Reported Psychiatric: reports: Orientated x3, Anxious Other Systems: Reviewed and Negative Patient History - Patient Medical History Hx Anemia: No Hx Asthma: Yes (Combivent) Hx Chronic Obstructive Pulmonary Disease (COPD): Yes (Combivent,Nebulizer tx) Hx Cancer: No Hx Cardiac Disorders: Yes (Prolong QT, LINCQ) Hx Congestive Heart Failure: No Hx Hypertension: Yes (Amlodipine) Hx Hypercholesterolemia: No Hx Pacemaker: No HX Cerebrovascular Accident: No Hx Seizures: No Hx Dementia: No Hx Diabetes: No Hx Gastrointestinal Disorders: Yes (GERD- Nexium) Hx Liver Disease: No Hx Genitourinary Disorders: No Hx Sexually Transmitted Disorders: Yes (Herpes - not on medication) Hx Renal Disease (ESRD): No Hx Thyroid Disease: Yes (hyperthyroid- ) Hx Human Immunodeficiency Virus (HIV): No ([id number] 2019) Hx Hepatitis C: No Hx Depression: No Hx Suicide Attempt: Yes (At age 23, denies suicidal ideation at this time) Hx Bipolar Disorder: Yes Hx Schizophrenia: No Other Medical History: Scoliosis, Anxiety, Prolong QT, TB (treated) - Patient Surgical History Past Surgical History: Yes Hx Neurologic Surgery: No Hx Cataract Extraction: No Hx Cardiac Surgery: No Hx Lung Surgery: No Hx Breast Surgery: No Hx Breast Biopsy: No Hx Abdominal Surgery: No Hx Appendectomy: No Hx Cholecystectomy: No Hx Genitourinary Surgery: No Hx Section: No Hx Orthopedic Surgery: No Other Surgical History: LEED Procedure, LINCQ Anesthesia Reaction: No - PPD History Previous Implant?: Yes (POSITIVE 1989. TREATED WITH INH, B6,RIVAMPIN, PZA FOR A YEAR. FOLLOWED BY E) PPD to be Administered?: No - Reproductive History Patient is a Female of Child Bearing Age (11 -55 yrs old): Yes LMP comment: Menopausal Patient : No - Smoking Cessation Smoking history: Current every day smoker Have you smoked in the past 12 months: Yes Aproximately how many cigarettes per day: 10 Hx Chewing Tobacco Use: No Initiated information on smoking cessation: Yes 'Breaking Loose' booklet given: 05/20/19 - Substance & Tx. History Hx Alcohol Use: Yes Hx Substance Use: Yes Substance Use Type: Alcohol, Cocaine Hx Substance Use Treatment: Yes ([facility]) - Substances abused Alcohol Substance route: Oral Frequency: Daily Amount used: 1.5 six pack beer, 3 pints vodka Age of first use: 16 Date of last use: 05/19/19 Crack Substance route: Smoking Frequency: 1-3 times last 30 days Amount used: $80-100 Age of first use: 16 Date of last use: 05/19/19 Family Disease History - Family Disease History Family Disease History: Diabetes: Grandparent, Heart Disease: Father Admission Physical Exam [facility] - Vital Signs Vital Signs: Vital Signs - 24 hr 05/20/19 10:01 Temperature 97.0 F L Pulse Rate 79 Respiratory 18 Rate Blood Pressure 153/95 - Physical General Appearance: Yes: Moderate Distress, Tremorous, Irritable, Anxious HEENTM: Yes: Within Normal Limits Respiratory: Yes: Normal Breath Sounds, No Respiratory Distress Neck: Yes: Supple Breast: Yes: Breast Exam Deferred Cardiology: Yes: Regular Rhythm, Regular Rate Abdominal: Yes: Normal Bowel Sounds Genitourinary: Yes: Within Normal Limits Back: Yes: Normal Inspection Musculoskeletal: Yes: Within Normal Limits Extremities: Yes: Normal Inspection Neurological: Yes: Within Normal Limits Integumentary: Yes: Warm Lymphatic: Yes: Within Normal Limits - Diagnostic (1) Vertigo Current Visit: Yes Status: Chronic (2) Anxiety Current Visit: Yes Status: Chronic (3) Herpes circinatus Current Visit: Yes Status: Chronic (4) Scoliosis Current Visit: Yes Status: Chronic Qualifiers: Scoliosis type: unspecified scoliosis (5) Asthma Current Visit: Yes Status: Chronic Qualifiers: Asthma severity: mild Asthma persistence: intermittent (6) Alcohol dependence with uncomplicated withdrawal Current Visit: Yes Status: Acute (7) COPD (chronic obstructive pulmonary disease) Current Visit: Yes Status: Chronic Qualifiers: COPD type: unspecified COPD Qualified Code(s): J44.9 - Chronic obstructive pulmonary disease, unspecified (8) Cocaine dependence Current Visit: Yes Status: Chronic Qualifiers: Substance use status: uncomplicated Qualified Code(s): F14.20 - Cocaine dependence, uncomplicated (9) Essential (primary) hypertension Current Visit: Yes Status: Chronic (10) GERD (gastroesophageal reflux disease) Current Visit: Yes Status: Chronic Qualifiers: Esophagitis presence: without esophagitis Qualified Code(s): K21.9 - Gastro -esophageal reflux disease without esophagitis (11) Gout Current Visit: Yes Status: Chronic Qualifiers: Gout site: unspecified site Chronicity: unspecified (12) History of tuberculosis Current Visit: Yes Status: Acute (13) Prolonged QT syndrome Current Visit: Yes Status: Chronic Cleared for Admission S - Detox or Rehab [facility] Level of Care: Medically Managed Detox Regimen/Protocol: Librium Breathalyzer - Breathalyzer Breathalyzer: 0 POC Urine test - Test device test lot number: [id number] Expiration date: 07/21/20 - Control test control: Yes Urine Drug Screen - Test Device Lot number: [id number] Expiration date: 01/18/21 - Control Is test valid?: Yes - Results Drug screen NEGATIVE: No Urine drug screen results: OLI-Cocaine, BZO-Benzodiazepines Inpatient Rehab Admission - Rehab Decision to Admit Inpatient rehab admission?: No
[2019-05-20] MEDS ORDERED: chlordiazePOXIDE HCL 25 MG CAPSULE PO PRN (13:53)
[2019-05-20] MEDS ORDERED: NICOTINE POLACRILEX 2 MG GUM BUC PRN (13:53)
[2019-05-20] MEDS ORDERED: MAG HYDROX/AL HYDROX/SIMETH 30 ML UNIT-DOSE CUP PO PRN (13:53)
[2019-05-20] MEDS ORDERED: BISMUTH SUBSALICYLATE 524 MG/30 ML UD PO PRN (13:53)
[2019-05-20] MEDS ORDERED: METHOCARBAMOL 500 MG TABLET PO PRN (13:53)
[2019-05-20] MEDS ORDERED: ACETAMINOPHEN 325 MG TABLET (FP) PO PRN ×2 (13:53)
[2019-05-20] MEDS ORDERED: MENTHOL/PHENOL 1 EACH UD MM PRN (13:53)
[2019-05-20] MEDS ORDERED: MAGNESIUM HYDROX 2400MG/30ML ORAL SUSPENSION 30 ML CUP PO PRN (13:53)
[2019-05-20] MEDS ORDERED: hydrOXYzine PAMOATE 25 MG CAPSULE (FP) PO PRN (13:53)
[2019-05-20] MEDS ORDERED: MAGNESIUM CITRATE 300 ML BOTTLE PO PRN (13:53)
[2019-05-20] MEDS ORDERED: ALBUTEROL SO4 8 GM HFA INHALER IH PRN (13:56)
[2019-05-20] MEDS ORDERED: PATIENT'S OWN MEDICATION (NON-FORMULARY) (Clonidine Hcl [Catapres] 0.2 MG) PO SCH (14:00)
[2019-05-20] MEDS ORDERED: PATIENT'S OWN MEDICATION (NON-FORMULARY) (Amlodipine Besylate/Benazepril [Lotrel 5-10 Mg C PO SCH (14:00)
[2019-05-20] MEDS ORDERED: amLODIPine BESYLATE 10 MG TABLET (FP) PO SCH (15:00)
[2019-05-20] MEDS: LISINOPRIL 10 MG TABLET (FP) PO SCH (15:12)
[2019-05-20] MEDS: IBUPROFEN 400 MG TABLET (FP) PO PRN (15:13)
[2019-05-20] MEDS: chlordiazePOXIDE HCL 25 MG CAPSULE PO SCH ×4 (15:16→23:55)
[2019-05-20] MEDS: THIAMINE HCL 100 MG TABLET (FP) PO SCH (23:55)
[2019-05-21] MEDS: IBUPROFEN 400 MG TABLET (FP) PO PRN ×4 (04:16→22:11)
[2019-05-21] MEDS: chlordiazePOXIDE HCL 25 MG CAPSULE PO SCH ×4 (04:20→22:09)
--- NOTE | 2019-05-21 10:08 | CONSULT ---
[facility] Psychiatric Consult - Data Date of interview: 05/21/19 Admission source: Self-referred Identifying data: Ms Connolly is 53 years old single female, mother of 4 children, unemployed, homeless seeking detox treatment for alcohol and cocaine Substance Abuse History: According to [facility] record, she has a history of alcohol, crack cocaine use Medical History: As per [facility], PMH is significant for bronchial asthma, GERD, scoliosis, hypertension, hyperthyroidism, goot, history of treatment for herpes and TB Psychiatric History: Patient was approached at bedside by property underwriter. She told property underwriter at first that she has a backache then when asked what time would be best for her to talk, she responded that she did not want to talk at all
[2019-05-21] MEDS: PRENATAL VITAMINS W/ FOLIC ACID TABLET (FP) PO SCH (10:21)
[2019-05-21] MEDS: cloNIDine HCL 0.1 MG TABLET PO SCH (10:21)
[2019-05-21] MEDS: amLODIPine BESYLATE 5 MG TABLET (FP) PO SCH (10:22)
[2019-05-21] MEDS: LISINOPRIL 10 MG TABLET (FP) PO SCH (10:22)
[2019-05-21] MEDS: NICOTINE 14 MG/24 HOURS TOPICAL PATCH TD SCH (10:29)
[2019-05-21 10:30] LABS: HEMATOCRIT 42.5 % (32.4-45.2); HEMOGLOBIN 13.8 GM/dL (10.7-15.3); MCH 28.1 pg (25.7-33.7); MCHC 32.4 g/dl (32.0-36.0); MEAN CELL VOLUME 86.8 fl (80-96); MEAN PLT VOLUME 8.3 fl (7.5-11.1); PLATELET COUNT 296 K/MM3 (134-434); RDW 14.1 % (11.6-15.6); WHITE BLOOD COUNT 3.5 K/mm3 (4.0-10.0)
[2019-05-21 10:56] LABS: ALBUMIN 3.2 g/dl (3.4-5.0); BILIRUBIN,TOTAL 0.3 mg/dL (0.2-1); BLOOD UREA NITROGEN 19.4 mg/dL (7-18); CREATININE 0.7 mg/dL (0.55-1.3); POTASSIUM 4.5 mmol/L (3.5-5.1); TOT PROT 6.3 g/dl (6.4-8.2)
--- NOTE | 2019-05-21 13:18 | PN ---
[facility] CIWA - CIWA Score Nausea/Vomitin-No Nausea/No Vomiting Muscle Tremors: 3 Anxiety: 3 Agitation: 4-Moderately Restless Paroxysmal Sweats: 3 Orientation: 0-Oriented Tacttile Disturbances: 0-None Auditory Disturbances: 0-None Visual Disturbances: 0-None Headache: 0-None Present CIWA-Ar Total Score: 13 [facility] Progress Note (SOAP) Subjective: sweats shakes interrupted sleep body aches irritable Objective: 05/21/19 13:17 Vital Signs Temperature 97.7 F 05/21/19 13:07 Pulse Rate 75 05/21/19 13:07 Respiratory Rate 18 05/21/19 13:07 Blood Pressure 114/64 05/21/19 13:07 O2 Sat by Pulse Oximetry (%) Laboratory Tests 05/20/19 05/21/19 05/21/19 12:28 07:00 07:00 WBC 3.5 L RBC 4.90 Hgb 13.8 Hct 42.5 MCV 86.8 MCH 28.1 MCHC 32.4 RDW 14.1 Plt Count 296 MPV 8.3 Sodium 140 Potassium 4.5 Chloride 108 H Carbon Dioxide 28 Anion Gap 4 L BUN 19.4 H Creatinine 0.7 Est GFR (CKD-EPI)AfAm 116.27 Est GFR (CKD-EPI)NonAf 100.32 Random Glucose 73 L Calcium 9.0 Total Bilirubin 0.3 AST 21 ALT 19 Alkaline Phosphatase 78 Total Protein 6.3 L Albumin 3.2 L POC Urine HCG, Qual Negative RPR Titer HIV 1&2 Antibody Screen HIV P24 Antigen 05/21/19 05/21/19 07:00 07:00 WBC RBC Hgb Hct MCV MCH MCHC RDW Plt Count MPV Sodium Potassium Chloride Carbon Dioxide Anion Gap BUN Creatinine Est GFR (CKD-EPI)AfAm Est GFR (CKD-EPI)NonAf Random Glucose Calcium Total Bilirubin AST ALT Alkaline Phosphatase Total Protein Albumin POC Urine HCG, Qual RPR Titer Nonreactive HIV 1&2 Antibody Screen Negative HIV P24 Antigen Negative aaox3 ambulating no acute distress Assessment: 05/21/19 13:18 withdrawal sx Plan: continue detox increase fluids
[2019-05-21] MEDS: BACLOFEN 10 MG TABLET (FP) PO SCH ×2 (13:59→22:09)
[2019-05-21] MEDS: THIAMINE HCL 100 MG TABLET (FP) PO SCH (22:09)
[2019-05-21] MEDS: MELATONIN 5 MG TABLETS PO PRN (22:10)
[2019-05-21] MEDS: BENZOCAINE 20 % GEL TUBE MM PRN (22:41)
[2019-05-22] MEDS ORDERED: chlordiazePOXIDE HCL 10 MG CAPSULE PO PRN (05:00)
[2019-05-22] MEDS: chlordiazePOXIDE HCL 10 MG CAPSULE PO SCH ×4 (06:28→23:13)
[2019-05-22] MEDS: BACLOFEN 10 MG TABLET (FP) PO SCH ×3 (06:28→22:09)
[2019-05-22] MEDS: IBUPROFEN 400 MG TABLET (FP) PO PRN ×2 (06:31→18:54)
[2019-05-22] MEDS: cloNIDine HCL 0.1 MG TABLET PO SCH (10:07)
[2019-05-22] MEDS: amLODIPine BESYLATE 5 MG TABLET (FP) PO SCH (10:08)
[2019-05-22] MEDS: PRENATAL VITAMINS W/ FOLIC ACID TABLET (FP) PO SCH (10:08)
[2019-05-22] MEDS: LISINOPRIL 10 MG TABLET (FP) PO SCH (10:08)
--- NOTE | 2019-05-22 11:58 | PN ---
[facility] CIWA - CIWA Score Nausea/Vomitin-No Nausea/No Vomiting Muscle Tremors: 3 Anxiety: 3 Agitation: 3 Paroxysmal Sweats: 2 Orientation: 0-Oriented Tacttile Disturbances: 0-None Auditory Disturbances: 0-None Visual Disturbances: 0-None Headache: 0-None Present CIWA-Ar Total Score: 11 [facility] Progress Note (SOAP) Subjective: body aches sweats Objective: 05/22/19 11:56 Vital Signs Temperature 97.5 F L 05/22/19 09:36 Pulse Rate 66 05/22/19 09:36 Respiratory Rate 17 05/22/19 09:36 Blood Pressure 141/90 05/22/19 09:36 O2 Sat by Pulse Oximetry (%) Laboratory Tests 05/20/19 05/21/19 05/21/19 12:28 07:00 07:00 WBC 3.5 L RBC 4.90 Hgb 13.8 Hct 42.5 MCV 86.8 MCH 28.1 MCHC 32.4 RDW 14.1 Plt Count 296 MPV 8.3 Sodium 140 Potassium 4.5 Chloride 108 H Carbon Dioxide 28 Anion Gap 4 L BUN 19.4 H Creatinine 0.7 Est GFR (CKD-EPI)AfAm 116.27 Est GFR (CKD-EPI)NonAf 100.32 Random Glucose 73 L Calcium 9.0 Total Bilirubin 0.3 AST 21 ALT 19 Alkaline Phosphatase 78 Total Protein 6.3 L Albumin 3.2 L POC Urine HCG, Qual Negative RPR Titer HIV 1&2 Antibody Screen HIV P24 Antigen 05/21/19 05/21/19 07:00 07:00 WBC RBC Hgb Hct MCV MCH MCHC RDW Plt Count MPV Sodium Potassium Chloride Carbon Dioxide Anion Gap BUN Creatinine Est GFR (CKD-EPI)AfAm Est GFR (CKD-EPI)NonAf Random Glucose Calcium Total Bilirubin AST ALT Alkaline Phosphatase Total Protein Albumin POC Urine HCG, Qual RPR Titer Nonreactive HIV 1&2 Antibody Screen Negative HIV P24 Antigen Negative aaox3 ambulating no acute distress Assessment: 05/22/19 11:57 withdrawal sx Plan: continue detox increase fluids baclofen ordered motrin or roboxin also ordered prn
[2019-05-22] MEDS: NICOTINE 14 MG/24 HOURS TOPICAL PATCH TD SCH (12:27)
[2019-05-22] MEDS: MELATONIN 5 MG TABLETS PO PRN (22:09)
[2019-05-22] MEDS: THIAMINE HCL 100 MG TABLET (FP) PO SCH (22:09)
[2019-05-22] MEDS: BENZOCAINE 20 % GEL TUBE MM PRN (22:10)
[2019-05-23] MEDS ORDERED: chlordiazePOXIDE HCL 10 MG CAPSULE PO SCH (05:00)
[2019-05-23] MEDS: BACLOFEN 10 MG TABLET (FP) PO SCH (06:32)
[2019-05-23] MEDS: IBUPROFEN 400 MG TABLET (FP) PO PRN (06:32)
[2019-05-23 09:37] VITALS: BP 115/71; PULSE 78; TEMP 97
[2019-05-23] MEDS: amLODIPine BESYLATE 5 MG TABLET (FP) PO SCH (10:35)
[2019-05-23] MEDS: NICOTINE 14 MG/24 HOURS TOPICAL PATCH TD SCH (10:35)
[2019-05-23] MEDS: cloNIDine HCL 0.1 MG TABLET PO SCH (10:35)
[2019-05-23] MEDS: PRENATAL VITAMINS W/ FOLIC ACID TABLET (FP) PO SCH (10:35)
[2019-05-23] MEDS: LISINOPRIL 10 MG TABLET (FP) PO SCH (10:35)
[2019-05-23] MEDS ORDERED: LIDOCAINE 5% TOPICAL PATCH TP SCH (11:15)
--- NOTE | 2019-05-23 16:37 | DS ---
[facility] Detox Discharge Summary Admission Date: 05/20/19 Discharge Date: 05/23/19 - History Present History: Alcohol Dependence, Cocaine Dependence Additional Comments: PT COMPLETED DETOX AND DISCHARGED TO REHAB TODAY. PT IS ALERT O X 3. DENIES S/H/ I. Pertinent Past History: PLEAS SEE DX BELOW - Physical Exam Results Vital Signs: Vital Signs Temperature 97.0 F L 05/23/19 09:37 Pulse Rate 78 05/23/19 09:37 Respiratory Rate 18 05/23/19 09:37 Blood Pressure 115/71 05/23/19 09:37 O2 Sat by Pulse Oximetry (%) Pertinent Admission Physical Exam Findings: WITHDRAWAL SX Laboratory Tests 05/20/19 05/21/19 05/21/19 12:28 07:00 07:00 WBC 3.5 L RBC 4.90 Hgb 13.8 Hct 42.5 MCV 86.8 MCH 28.1 MCHC 32.4 RDW 14.1 Plt Count 296 MPV 8.3 Sodium 140 Potassium 4.5 Chloride 108 H Carbon Dioxide 28 Anion Gap 4 L BUN 19.4 H Creatinine 0.7 Est GFR (CKD-EPI)AfAm 116.27 Est GFR (CKD-EPI)NonAf 100.32 Random Glucose 73 L Calcium 9.0 Total Bilirubin 0.3 AST 21 ALT 19 Alkaline Phosphatase 78 Total Protein 6.3 L Albumin 3.2 L POC Urine HCG, Qual Negative RPR Titer HIV 1&2 Antibody Screen HIV P24 Antigen 05/21/19 05/21/19 07:00 07:00 WBC RBC Hgb Hct MCV MCH MCHC RDW Plt Count MPV Sodium Potassium Chloride Carbon Dioxide Anion Gap BUN Creatinine Est GFR (CKD-EPI)AfAm Est GFR (CKD-EPI)NonAf Random Glucose Calcium Total Bilirubin AST ALT Alkaline Phosphatase Total Protein Albumin POC Urine HCG, Qual RPR Titer Nonreactive HIV 1&2 Antibody Screen Negative HIV P24 Antigen Negative - Treatment Hospital Course: Detox Protocol Followed, Detoxed Safely, Responded well, Discharged Condition Good, Rehab Referral Accepted Patient has Accepted a Rehab Referral to: [address] - Medication Discharge Medications: Ambulatory Orders Amlodipine Besylate/Benazepril [Lotrel 5-10 mg Capsule] 5 mg PO DAILY 02/27/19 Clonidine HCl [Catapres] 0.2 mg PO DAILY 02/27/19 Diphenhydramine [Benadryl Capsule -] 25 mg PO PRN 02/27/19 Esomeprazole Magnesium 40 mg PO DAILY 02/27/19 Ibuprofen 800 mg PO Q8H PRN 02/27/19 Meclizine HCl 50 mg PO BID 02/27/19 Methimazole 5 mg PO TID 02/27/19 Multivitamins [Multivit ([facility] Formulary)] 1 tab PO DAILY 02/27/19 Albuterol 0.083% Nebulizer Marlena [Ventolin 0.083% Nebulizer Soln -] 1 neb NEB BID PRN 04/20/19 Albuterol Sulfate Inhaler - [Ventolin HFA Inhaler -] 2 inh PO Q4H PRN 04/21/19 Ipratropium/Albuterol Sulfate [Combivent Respimat Inhal [place]] 4 gm IH BID 05/20 Baclofen [Lioresal -] 10 mg PO TID 05/23/19 - Diagnosis (1) Alcohol dependence with uncomplicated withdrawal Status: Acute (2) Asthma Status: Chronic Qualifiers: Asthma severity: mild Asthma persistence: intermittent Asthma complication type: unspecified Qualified Code(s): J45.20 - Mild intermittent asthma, uncomplicated (3) COPD (chronic obstructive pulmonary disease) Status: Chronic Qualifiers: COPD type: unspecified COPD Qualified Code(s): J44.9 - Chronic obstructive pulmonary disease, unspecified (4) Cocaine dependence Status: Acute Qualifiers: Substance use status: uncomplicated Qualified Code(s): F14.20 - Cocaine dependence, uncomplicated (5) Essential (primary) hypertension Status: Chronic (6) GERD (gastroesophageal reflux disease) Status: Chronic Qualifiers: Esophagitis presence: without esophagitis Qualified Code(s): K21.9 - Gastro -esophageal reflux disease without esophagitis (7) Gout Status: Chronic Qualifiers: Gout site: unspecified site Chronicity: unspecified (8) Scoliosis Status: Chronic Qualifiers: Scoliosis type: unspecified scoliosis (9) History of chronic back pain Status: Chronic - AMA Did Patient Leave Against Medical Advice: No
[2019-05-23] MEDS ORDERED: LIDOCAINE PATCH REMOVAL MC SCH (22:00)
== END 2019-05-23 12:58 | disposition other institution (70) | DRG 774 ==
LOC: YASAS 09:22 → Y6N 14:24
PROVIDERS: ADMIT Surgery; ATTEND Surgery
PROC: HZ2ZZZZ Detoxification Services for Substance Abuse Treatment (ICD-10-PCS; principal; 2019-05-20)
DX: F10.230 Alcohol dependence with withdrawal, uncomplicated (principal); F14.20 Cocaine dependence, uncomplicated; F41.9 Anxiety disorder, unspecified; E05.90 Thyrotoxicosis, unspecified without thyrotoxic crisis or storm; I10 Essential (primary) hypertension; I45.81 Long QT syndrome; J45.20 Mild intermittent asthma, uncomplicated; J44.9 Chronic obstructive pulmonary disease, unspecified; K21.9 Gastro-esophageal reflux disease without esophagitis; B35.4 Tinea corporis; M41.9 Scoliosis, unspecified; M54.5 Low back pain; G89.29 Other chronic pain; Z86.19 Personal history of other infectious and parasitic diseases; Z86.11 Personal history of tuberculosis; Z87.39 Personal history of other diseases of the musculoskeletal system and connective tissue
CPT/HCPCS: 36415; 80053; 81025; 85027; 86593; 87389; J0475; J0735

== ENCOUNTER 2019-05-23 13:04 | Inpatient (IN) | payer OTHER ==
[2019-05-23] MEDS ORDERED: MAGNESIUM HYDROX 2400MG/30ML ORAL SUSPENSION 30 ML CUP PO PRN (14:33)
[2019-05-23] MEDS ORDERED: MENTHOL/PHENOL 1 EACH UD MM PRN (14:33)
[2019-05-23] MEDS ORDERED: guaiFENesin 200 MG/10 ML 10 ML UNIT-DOSE CUPS PO PRN (14:33)
[2019-05-23] MEDS ORDERED: MAG HYDROX/AL HYDROX/SIMETH 30 ML UNIT-DOSE CUP PO PRN (14:33)
[2019-05-23] MEDS ORDERED: MAGNESIUM CITRATE 300 ML BOTTLE PO PRN (14:33)
[2019-05-23] MEDS ORDERED: P-EPHED 60MG/TRIPROLIDI 2.5MG TABLET PO PRN (14:33)
[2019-05-23] MEDS ORDERED: IBUPROFEN 400 MG TABLET (FP) PO PRN ×2 (14:33→16:38)
[2019-05-23] MEDS ORDERED: LOPERAMIDE HCL 2 MG CAPSULE PO PRN (14:33)
[2019-05-23] MEDS ORDERED: ACETAMINOPHEN 325 MG TABLET (FP) PO PRN (14:33)
[2019-05-23] MEDS ORDERED: NICOTINE POLACRILEX 2 MG GUM BUC PRN (14:33)
[2019-05-23] MEDS ORDERED: hydrOXYzine PAMOATE 50 MG CAPSULE (FP) PO PRN (14:33)
[2019-05-23] MEDS ORDERED: ALBUTEROL SO4 0.083% IH SOL 2.5 MG/3 ML VIAL.NEB. NEB PRN (14:34)
[2019-05-23] MEDS ORDERED: ALBUTEROL SO4 8 GM HFA INHALER IH PRN (14:34)
--- NOTE | 2019-05-23 14:39 | HP ---
[facility] Re[facility] Assess/Revision - Admission History Admitted to Rehab from: [facility] [address] [facility] Date of Admission to Rehab: 05/23/19 - Findings Detox History & Physical reviewed: Yes Concur with findings: Yes Comments/Additional Findings: PT REPORTS CHRONIC BACK PAIN SHE REPORTS IS RELIEVED BY MOTRIN. PT VERBALIZED BACK PAIN IS NO HINDRANCE TO REHAB UNIT ACTIVITIES. Inpatient Rehab Admission - Rehab Decision to Admit Inpatient rehab admission?: Yes - Initial Determination Are CD services needed?: Yes Free of communicable disease: Yes Not in need of hospitalization: Yes - Rehab Admission Criteria Previous failed treatment: Yes Poor recovery environment: Yes Comorbidities: Yes Lacks judgement: Yes Patient is meeting Inpatient Rehab admission criteria:: Yes
[2019-05-23] MEDS ORDERED: PT OWN MED DRAWER 7, Y5N ONE (16:28)
[2019-05-23] MEDS ORDERED: COLLOIDAL OATMEAL 1 BAR EACH TP PRN (16:39)
[2019-05-23] MEDS: BENZOCAINE 20 % GEL TUBE MM PRN (17:16)
[2019-05-23] MEDS: IBUPROFEN 400 MG TABLET (FP) PO PRN (17:17)
[2019-05-23] MEDS: THIAMINE HCL 100 MG TABLET (FP) PO SCH (21:42)
[2019-05-23] MEDS: LIDOCAINE PATCH REMOVAL MC SCH (21:43)
[2019-05-23] MEDS ORDERED: MELATONIN 5 MG TABLETS PO PRN (22:00)
[2019-05-23] MEDS ORDERED: BACLOFEN 10 MG TABLET (FP) PO PRN (22:00)
[2019-05-24] MEDS: IBUPROFEN 400 MG TABLET (FP) PO PRN ×2 (06:50→21:22)
[2019-05-24] MEDS: BENZOCAINE 20 % GEL TUBE MM PRN (06:51)
[2019-05-24] MEDS ORDERED: PT OWN MED DRAWER 7, Y5N ONE ×3 (06:51→21:22)
[2019-05-24] MEDS: LIDOCAINE 5% TOPICAL PATCH TP SCH (09:11)
[2019-05-24] MEDS: LISINOPRIL 10 MG TABLET (FP) PO SCH (09:11)
[2019-05-24] MEDS: PANTOPRAZOLE 40 MG TABLET (FP) PO SCH (09:11)
[2019-05-24] MEDS: amLODIPine BESYLATE 5 MG TABLET (FP) PO SCH (09:11)
[2019-05-24] MEDS: PRENATAL VITAMINS W/ FOLIC ACID TABLET (FP) PO SCH (09:11)
[2019-05-24] MEDS ORDERED: PATIENT'S OWN MEDICATION (NON-FORMULARY) (Amlodipine Besylate/Benazepril [Lotrel 5-10 Mg C PO SCH (10:00)
[2019-05-24] MEDS ORDERED: amLODIPine BESYLATE 5 MG TABLET (FP) PO SCH (10:00)
[2019-05-24] MEDS: BUDESONIDE/FORMETEROL FUMARATE 80/4.5 mcg INHALER IH SCH ×2 (10:55→21:24)
[2019-05-24] MEDS ORDERED: SIMETHICONE 80 MG TAB.CHEW (FP) PO PRN (13:52)
[2019-05-24] MEDS: THIAMINE HCL 100 MG TABLET (FP) PO SCH (21:23)
[2019-05-24] MEDS: LIDOCAINE PATCH REMOVAL MC SCH (21:25)
[2019-05-25] MEDS: IBUPROFEN 400 MG TABLET (FP) PO PRN (06:33)
[2019-05-25] MEDS: BENZOCAINE 20 % GEL TUBE MM PRN (06:35)
[2019-05-25] MEDS ORDERED: PT OWN MED DRAWER 7, Y5N ONE (06:36)
[2019-05-25 07:17] VITALS: BP 148/90; PULSE 71; TEMP 97.1
[2019-05-25] MEDS: LIDOCAINE 5% TOPICAL PATCH TP SCH (09:06)
[2019-05-25] MEDS: PANTOPRAZOLE 40 MG TABLET (FP) PO SCH (09:07)
[2019-05-25] MEDS: amLODIPine BESYLATE 5 MG TABLET (FP) PO SCH (09:07)
[2019-05-25] MEDS: LISINOPRIL 10 MG TABLET (FP) PO SCH (09:07)
[2019-05-25] MEDS: PRENATAL VITAMINS W/ FOLIC ACID TABLET (FP) PO SCH (09:07)
[2019-05-25] MEDS: BUDESONIDE/FORMETEROL FUMARATE 80/4.5 mcg INHALER IH SCH (09:08)
--- NOTE | 2019-05-25 09:16 | PN ---
[facility] Progress Note (SOAP) Subjective: patient leaving AMA to assist her disabled son. Hospital Course: While in detox , patient attended 12 step program meetings, Community meetings, Nurse education sessions, and [facility] group meetings. She also met individually with her counselor, adhered to medication regimen as appropriate. Objective: A+O x3, ambulates with cane, heart sounds regular, lungs clear, abd soft, non- tender, non-distended, +BS. Skin clear, mucous membranes moist. Vital Signs (72 hours) 05/23/19 05/23/19 05/24/19 15:38 23:52 03:30 Temperature 97.9 F 98.0 F Pulse Rate 69 79 Respiratory 20 18 18 Rate Blood Pressure 121/84 104/71 05/24/19 05/24/19 05/25/19 07:05 09:14 00:30 Temperature 98.0 F Pulse Rate 79 69 Respiratory 18 18 18 Rate Blood Pressure 134/84 140/85 05/25/19 05/25/19 03:30 07:16 Temperature 97.1 F L Pulse Rate 71 Respiratory 18 18 Rate Blood Pressure 148/90 05/25/19 09:11 Assessment: Medically stable for discharge Discharge Dx: Asthma Chronic back pain Hx of TB Prolonged QT syndrome HTN GERD Cocaine dependence 05/25/19 09:13 Plan: Discharge Plan: Patient will seek readmission to program when issues with son resolved. Will attend NA meetings in the community. Does not remember the name of her medical provider. Encouraged to make an appointment with medical provider within 2 weeks. Prescription for inhaler transmitted to pharmacy.
== END 2019-05-25 09:44 | disposition home or self-care (01) | DRG 772 ==
LOC: YASAS 13:04 → Y3E 13:05
PROVIDERS: ADMIT Neuromusculoskeletal Medicine & OMM; ATTEND Neuromusculoskeletal Medicine & OMM
PROC: HZ42ZZZ Group Counseling for Substance Abuse Treatment, Cognitive-Behavioral (ICD-10-PCS; principal; 2019-05-23)
DX: F14.20 Cocaine dependence, uncomplicated (principal); I10 Essential (primary) hypertension; I45.81 Long QT syndrome; K21.9 Gastro-esophageal reflux disease without esophagitis; J45.909 Unspecified asthma, uncomplicated; M54.5 Low back pain; G89.29 Other chronic pain; R76.11 Nonspecific reaction to tuberculin skin test without active tuberculosis

== ENCOUNTER 2019-06-21 12:06 | Inpatient (IN) | payer OTHER | END 2019-06-24 15:50 | disposition left against medical advice (07) | LOC: YASAS 12:06 → Y3W 14:41 ==

== ENCOUNTER 2019-10-04 10:02 | Inpatient (IN) | payer OTHER ==
[2019-10-04 10:35] VITALS: BMI 34.4
--- NOTE | 2019-10-04 11:46 | HP ---
CIWA Score Nausea/Vomitin Muscle Tremors: 4-Moderate,w/Arms Extend Anxiety: 3 Agitation: 0-Normal Activity Paroxysmal Sweats: 1-Minimal Palms Moist Orientation: 0-Oriented Tacttile Disturbances: 0-None Auditory Disturbances: 0-None Visual Disturbances: 2-Mild Sensitivity Headache: 2-Mild CIWA-Ar Total Score: 14 - Admission Criteria OASAS Guidelines: Admission for Medically Managed Detox: Requires at least one of the followin. CIWA greater than 12 2. Seizures within the past 24 hours 3. Delirium tremens within the past 24 hours 4. Hallucinations within the past 24 hours 5. Acute intervention needed for co occurring medical disorder 6. Acute intervention needed for co occurring psychiatric disorder 7. Severe withdrawal that cannot be handled at a lower level of care (continued vomiting, continued diarrhea, abnormal vital signs) requiring intravenous medication and/or fluids 8. Admitting History and Physical - Smoking History Smoking history: Current every day smoker Have you smoked in the past 12 months: Yes Aproximately how many cigarettes per day: 10 - Alcohol/Substance Use Hx Alcohol Use: Yes Admission ROS [facility] Allergies/Adverse Reactions: Allergies Allergy/AdvReac Type Severity Reaction Status Date / Time lactose Allergy Severe Verified 10/04/19 10:13 nitrofurantoin AdvReac Severe Rash Verified 10/04/19 10:13 Pork/Porcine Containing AdvReac Verified 10/04/19 11:52 Products History of Present Illness: pt here requesting detox from etoh use , reports drinking 4-5 x/week 2 pints and 12 beers, yesterday had 5 beers " I didn't have a lot of money " . pmhx : long QTc , htn , copd , asthma , gout , gerd , scoliosis Exam Limitations: No Limitations - Ebola screening Have you traveled outside of the country in the last 21 days: No Have you had contact with anyone from an Ebola affected area: No Do you have a fever: No - Review of Systems Constitutional: See HPI EENT: reports: No Symptoms Reported Respiratory: reports: See HPI Cardiac: reports: See HPI GI: reports: See HPI : reports: Frequency Musculoskeletal: reports: Back Pain, Gout, Joint Pain Integumentary: reports: No Symptoms Reported Neuro: reports: Headache Endocrine: reports: No Symptoms Reported Psychiatric: reports: Orientated x3 Patient History - Patient Medical History Hx Anemia: No Hx Asthma: Yes Hx Chronic Obstructive Pulmonary Disease (COPD): Yes Hx Cancer: No Hx Cardiac Disorders: Yes Hx Congestive Heart Failure: No Hx Hypertension: Yes Hx Hypercholesterolemia: No Hx Pacemaker: No HX Cerebrovascular Accident: No Hx Seizures: No Hx Dementia: No Hx Diabetes: No Hx Gastrointestinal Disorders: No Hx Liver Disease: No Hx Genitourinary Disorders: No Hx Sexually Transmitted Disorders: No Hx Renal Disease (ESRD): No Hx Thyroid Disease: Yes (hyperthyroid- ) Hx Human Immunodeficiency Virus (HIV): No ([id number] 2019) Hx Hepatitis C: No Hx Depression: Yes Hx Suicide Attempt: Yes (Pt tried to hang herself on a tree 20 yrs ago.) Hx Bipolar Disorder: Yes Hx Schizophrenia: No - Patient Surgical History Past Surgical History: Yes Hx Neurologic Surgery: No Hx Cataract Extraction: No Hx Cardiac Surgery: No Hx Lung Surgery: No Hx Breast Surgery: No Hx Breast Biopsy: No Hx Abdominal Surgery: No Hx Appendectomy: No Hx Cholecystectomy: No Hx Genitourinary Surgery: No Hx Section: No Hx Orthopedic Surgery: No Other Surgical History: LEED Procedure, LINCQ Anesthesia Reaction: No - Smoking Cessation Smoking history: Current every day smoker Have you smoked in the past 12 months: Yes Aproximately how many cigarettes per day: 10 Hx Chewing Tobacco Use: No Initiated information on smoking cessation: Yes 'Breaking Loose' booklet given: 10/04/19 - Substances abused Alcohol Substance route: Oral Frequency: Daily Amount used: 12-14 beers, 3 pints vodka Age of first use: 16 Date of last use: 10/04/19 Crack Substance route: Smoking Frequency: 1-3 times last 30 days Amount used: 4-5 bags Age of first use: 16 Date of last use: 10/03/19 Admission Physical Exam S - Vital Signs Vital Signs: Vital Signs - 24 hr 10/04/19 10:31 Temperature 97.1 F L Pulse Rate 89 Respiratory 20 Rate Blood Pressure 124/76 - Physical General Appearance: Yes: No Apparent Distress HEENTM: Yes: EOMI, Hearing grossly Normal, Normocephalic, Normal Voice Respiratory: Yes: Chest Non-Tender, Lungs Clear, Decreased Breath Sounds, No Respiratory Distress, No Accessory Muscle Use Neck: Yes: No masses,lesions,Nodules, Trachea in good position Cardiology: Yes: Regular Rhythm, Regular Rate Abdominal: Yes: Non Tender, Soft Musculoskeletal: Yes: Gait Steady Extremities: Yes: Normal Range of Motion Neurological: Yes: Fully Oriented, Alert, Motor Strength 5/5 - Diagnostic (1) Alcohol dependence with uncomplicated withdrawal Current Visit: Yes Status: Chronic (2) Cocaine dependence Current Visit: Yes Status: Chronic Qualifiers: Substance use status: uncomplicated Qualified Code(s): F14.20 - Cocaine dependence, uncomplicated Breathalyzer - Breathalyzer Breathalyzer: 0 POC Urine test - Test device test lot number: [id number] Expiration date: 07/21/20 - Control test control: Yes Urine Drug Screen - Test Device Lot number: [id number] Expiration date: 06/20/21 - Control Is test valid?: Yes - Results Drug screen NEGATIVE: No Urine drug screen results: OLI-Cocaine, MOP-Opiates, BZO-Benzodiazepines Inpatient Rehab Admission - Rehab Decision to Admit Inpatient rehab admission?: No
[2019-10-04] MEDS ORDERED: ALBUTEROL SO4 8 GM HFA INHALER IH PRN (11:53)
[2019-10-04] MEDS ORDERED: NAPROXEN 500 MG TABLET (FP) PO SCH (12:00)
[2019-10-04] MEDS ORDERED: MENTHOL/PHENOL 1 EACH UD MM PRN (12:02)
[2019-10-04] MEDS ORDERED: MAGNESIUM HYDROX 2400MG/30ML ORAL SUSPENSION 30 ML CUP PO PRN (12:02)
[2019-10-04] MEDS ORDERED: MAGNESIUM CITRATE 300 ML BOTTLE PO PRN (12:02)
[2019-10-04] MEDS ORDERED: METHOCARBAMOL 500 MG TABLET PO PRN (12:02)
[2019-10-04] MEDS ORDERED: BISMUTH SUBSALICYLATE 262 MG/15 ML BTL PO PRN (12:02)
[2019-10-04] MEDS ORDERED: ACETAMINOPHEN 325 MG TABLET (FP) PO PRN (12:02)
[2019-10-04] MEDS ORDERED: MAG HYDROX/AL HYDROX/SIMETH 30 ML UNIT-DOSE CUP PO PRN (12:02)
[2019-10-04] MEDS ORDERED: chlordiazePOXIDE HCL 25 MG CAPSULE PO PRN (12:03)
[2019-10-04] MEDS: ALBUTEROL SO4 2.5/IPRATROPIUM 0.5 INH SOL 3 ML VIAL.NEB. NEB SCH ×2 (14:06→22:31)
[2019-10-04] MEDS: PATIENT'S OWN MEDICATION (NON-FORMULARY) (Ipratropium/Albuterol Sulfate [Combivent Respima IH SCH (15:14)
[2019-10-04] MEDS: BUDESONIDE/FORMETEROL FUMARATE 160/4.5 mcg INHALER IH SCH (15:15)
[2019-10-04] MEDS: CHOLECALCIFEROL (VIT D3) 1,000 UNIT (25 MCG) TABLET PO SCH (15:45)
[2019-10-04] MEDS: chlordiazePOXIDE HCL 25 MG CAPSULE PO SCH ×2 (18:54→22:31)
[2019-10-04] MEDS: THIAMINE HCL 100 MG TABLET (FP) PO SCH (22:31)
[2019-10-05] MEDS: hydrOXYzine PAMOATE 25 MG CAPSULE (FP) PO PRN (01:49)
[2019-10-05] MEDS: ACETAMINOPHEN 325 MG TABLET (FP) PO PRN (01:50)
[2019-10-05] MEDS: chlordiazePOXIDE HCL 25 MG CAPSULE PO SCH ×5 (05:46→22:21)
[2019-10-05] MEDS: ALBUTEROL SO4 2.5/IPRATROPIUM 0.5 INH SOL 3 ML VIAL.NEB. NEB SCH ×3 (06:49→21:23)
[2019-10-05] MEDS: BACLOFEN 10 MG TABLET (FP) PO SCH ×3 (07:24→21:26)
[2019-10-05] MEDS: NAPROXEN 500 MG TABLET (FP) PO SCH ×3 (07:24→21:26)
[2019-10-05 10:27] LABS: ALBUMIN 3.2 g/dl (3.4-5.0); BILIRUBIN,TOTAL 0.2 mg/dL (0.2-1); CALCIUM 9.3 mg/dL (8.5-10.1); CREATININE 0.8 mg/dL (0.55-1.3); TOT PROT 6.3 g/dl (6.4-8.2)
[2019-10-05 10:41] LABS: HEMATOCRIT 41.3 % (32.4-45.2); HEMOGLOBIN 13.3 GM/dL (10.7-15.3); MCH 28.2 pg (25.7-33.7); MCHC 32.1 g/dl (32.0-36.0); MEAN CELL VOLUME 87.9 fl (80-96); MEAN PLT VOLUME 8.2 fl (7.5-11.1); PLATELET COUNT 276 K/MM3 (134-434); RDW 14.3 % (11.6-15.6); WHITE BLOOD COUNT 3.8 K/mm3 (4.0-10.0)
[2019-10-05] MEDS: BUDESONIDE/FORMETEROL FUMARATE 160/4.5 mcg INHALER IH SCH (10:56)
[2019-10-05] MEDS: PATIENT'S OWN MEDICATION (NON-FORMULARY) (Ipratropium/Albuterol Sulfate [Combivent Respima IH SCH (10:57)
[2019-10-05] MEDS: PRENATAL VITAMINS W/ FOLIC ACID TABLET (FP) PO SCH (10:59)
[2019-10-05] MEDS: CHOLECALCIFEROL (VIT D3) 1,000 UNIT (25 MCG) TABLET PO SCH (10:59)
--- NOTE | 2019-10-05 13:46 | PN ---
S CIWA - CIWA Score Nausea/Vomitin-No Nausea/No Vomiting Muscle Tremors: 1-None Visible, but [place] Anxiety: 1-Mildly Anxious Agitation: 0-Normal Activity Paroxysmal Sweats: 2 Orientation: 0-Oriented Tacttile Disturbances: 2-Mild Itch/Numbness/Burn Auditory Disturbances: 0-None Visual Disturbances: 0-None Headache: 0-None Present CIWA-Ar Total Score: 6 [facility] Progress Note (SOAP) Subjective: INTERRUPTED SLEEP, BUT FEELING BETTER, SWEATS, WANTS LIDOCAINE PATCH FOR LBP Objective: 10/05/19 13:44 Vital Signs Temperature 96.2 F L 10/05/19 13:15 Pulse Rate 84 10/05/19 13:15 Respiratory Rate 18 10/05/19 13:15 Blood Pressure 117/75 10/05/19 13:15 O2 Sat by Pulse Oximetry (%) Laboratory Tests 10/04/19 10/05/19 10/05/19 11:35 08:06 08:06 WBC 3.8 L RBC 4.70 Hgb 13.3 Hct 41.3 MCV 87.9 MCH 28.2 MCHC 32.1 RDW 14.3 Plt Count 276 MPV 8.2 Sodium 141 Potassium 5.0 Chloride 108 H Carbon Dioxide 29 Anion Gap 4 L BUN 18.0 Creatinine 0.8 Est GFR (CKD-EPI)AfAm 98.24 Est GFR (CKD-EPI)NonAf 84.76 Random Glucose 84 Calcium 9.3 Total Bilirubin 0.2 AST 13 L ALT 16 Alkaline Phosphatase 73 Total Protein 6.3 L Albumin 3.2 L POC Urine HCG, Qual Negative RPR Titer HIV 1&2 Antibody Screen HIV P24 Antigen 10/05/19 10/05/19 08:06 08:06 WBC RBC Hgb Hct MCV MCH MCHC RDW Plt Count MPV Sodium Potassium Chloride Carbon Dioxide Anion Gap BUN Creatinine Est GFR (CKD-EPI)AfAm Est GFR (CKD-EPI)NonAf Random Glucose Calcium Total Bilirubin AST ALT Alkaline Phosphatase Total Protein Albumin POC Urine HCG, Qual RPR Titer Nonreactive HIV 1&2 Antibody Screen Negative HIV P24 Antigen Negative PT AOX3 IN NAD AMBULATING Assessment: 10/05/19 13:45 WITHDRAWAL SX'S LBP Plan: CONT. DETOX INCREASE FLUIDS LIDOCAINE PATCH
[2019-10-05] MEDS ORDERED: LIDOCAINE 5% TOPICAL PATCH TP ONE (14:30)
[2019-10-05] MEDS: THIAMINE HCL 100 MG TABLET (FP) PO SCH (21:27)
[2019-10-05] MEDS: MELATONIN 5 MG TABLETS PO PRN (21:27)
[2019-10-05] MEDS: NICOTINE POLACRILEX 2 MG GUM BUC PRN (21:29)
[2019-10-05] MEDS ORDERED: LIDOCAINE PATCH REMOVAL MC ONE (22:00)
[2019-10-06] MEDS: chlordiazePOXIDE HCL 10 MG CAPSULE PO SCH ×4 (06:19→22:55)
[2019-10-06] MEDS: ALBUTEROL SO4 2.5/IPRATROPIUM 0.5 INH SOL 3 ML VIAL.NEB. NEB SCH ×3 (06:19→22:53)
[2019-10-06] MEDS: BACLOFEN 10 MG TABLET (FP) PO SCH ×3 (06:19→22:55)
[2019-10-06] MEDS ORDERED: COLLOIDAL OATMEAL 1 BAR EACH TP PRN (09:48)
[2019-10-06] MEDS: NAPROXEN 500 MG TABLET (FP) PO SCH ×2 (10:27→22:55)
[2019-10-06] MEDS: CHOLECALCIFEROL (VIT D3) 1,000 UNIT (25 MCG) TABLET PO SCH (10:27)
[2019-10-06] MEDS: PATIENT'S OWN MEDICATION (NON-FORMULARY) (Ipratropium/Albuterol Sulfate [Combivent Respima IH SCH (10:27)
[2019-10-06] MEDS: BUDESONIDE/FORMETEROL FUMARATE 160/4.5 mcg INHALER IH SCH (10:27)
[2019-10-06] MEDS: PRENATAL VITAMINS W/ FOLIC ACID TABLET (FP) PO SCH (10:27)
[2019-10-06] MEDS: LIDOCAINE 5% TOPICAL PATCH TP SCH (10:28)
[2019-10-06] MEDS: NICOTINE POLACRILEX 2 MG GUM BUC PRN (10:31)
--- NOTE | 2019-10-06 13:09 | PN ---
S CIWA - CIWA Score Nausea/Vomitin-No Nausea/No Vomiting Muscle Tremors: None Anxiety: 2 Agitation: 0-Normal Activity Paroxysmal Sweats: 3 Orientation: 0-Oriented Tacttile Disturbances: 0-None Auditory Disturbances: 0-None Visual Disturbances: 0-None Headache: 2-Mild CIWA-Ar Total Score: 7 [facility] Progress Note (SOAP) Subjective: c/o lower back pain, anxiety, headache, and sweats. Objective: 10/06/19 13:05 Vital Signs 10/06/19 09:17 Temperature 963 F H Pulse Rate 84 Respiratory 18 Rate Blood Pressure 124/75 Lab Results WBC 3.8 K/mm3 (4.0-10.0) L 10/05/19 08:06 RBC 4.70 M/mm3 (3.60-5.2) 10/05/19 08:06 Hgb 13.3 GM/dL (10.7-15.3) 10/05/19 08:06 Hct 41.3 % (32.4-45.2) 10/05/19 08:06 MCV 87.9 fl (80-96) 10/05/19 08:06 MCHC 32.1 g/dl (32.0-36.0) 10/05/19 08:06 RDW 14.3 % (11.6-15.6) 10/05/19 08:06 Plt Count 276 K/MM3 (134-434) 10/05/19 08:06 Sodium 141 mmol/L (136-145) 10/05/19 08:06 Potassium 5.0 mmol/L (3.5-5.1) 10/05/19 08:06 Chloride 108 mmol/L (98-107) H 10/05/19 08:06 Carbon Dioxide 29 mmol/L (21-32) 10/05/19 08:06 Anion Gap 4 MMOL/L (8-16) L 10/05/19 08:06 BUN 18.0 mg/dL (7-18) 10/05/19 08:06 Creatinine 0.8 mg/dL (0.55-1.3) 10/05/19 08:06 Random Glucose 84 mg/dL (74-106) 10/05/19 08:06 Calcium 9.3 mg/dL (8.5-10.1) 10/05/19 08:06 Laboratory Last Values WBC 3.8 K/mm3 (4.0-10.0) L 10/05/19 08:06 RBC 4.70 M/mm3 (3.60-5.2) 10/05/19 08:06 Hgb 13.3 GM/dL (10.7-15.3) 10/05/19 08:06 Hct 41.3 % (32.4-45.2) 10/05/19 08:06 MCV 87.9 fl (80-96) 10/05/19 08:06 MCH 28.2 pg (25.7-33.7) 10/05/19 08:06 MCHC 32.1 g/dl (32.0-36.0) 10/05/19 08:06 RDW 14.3 % (11.6-15.6) 10/05/19 08:06 Plt Count 276 K/MM3 (134-434) 10/05/19 08:06 MPV 8.2 fl (7.5-11.1) 10/05/19 08:06 Sodium 141 mmol/L (136-145) 10/05/19 08:06 Potassium 5.0 mmol/L (3.5-5.1) 10/05/19 08:06 Chloride 108 mmol/L (98-107) H 10/05/19 08:06 Carbon Dioxide 29 mmol/L (21-32) 10/05/19 08:06 Anion Gap 4 MMOL/L (8-16) L 10/05/19 08:06 BUN 18.0 mg/dL (7-18) 10/05/19 08:06 Creatinine 0.8 mg/dL (0.55-1.3) 10/05/19 08:06 Est GFR (CKD-EPI)AfAm 98.24 10/05/19 08:06 Est GFR (CKD-EPI)NonAf 84.76 10/05/19 08:06 Random Glucose 84 mg/dL (74-106) 10/05/19 08:06 Calcium 9.3 mg/dL (8.5-10.1) 10/05/19 08:06 Total Bilirubin 0.2 mg/dL (0.2-1) 10/05/19 08:06 AST 13 U/L (15-37) L 10/05/19 08:06 ALT 16 U/L (13-61) 10/05/19 08:06 Alkaline Phosphatase 73 U/L (45-117) 10/05/19 08:06 Total Protein 6.3 g/dl (6.4-8.2) L 10/05/19 08:06 Albumin 3.2 g/dl (3.4-5.0) L 10/05/19 08:06 POC Urine HCG, Qual Negative 10/04/19 11:35 RPR Titer Nonreactive (NONREACTIVE) 10/05/19 08:06 HIV 1&2 Antibody Screen Negative 10/05/19 08:06 HIV P24 Antigen Negative 10/05/19 08:06 Labs noted. Assessment: 10/06/19 13:08 AOX3, in no acute respiratory distress. Full ROM, ambulating in the unit. Withdrawal symptoms. Low back pain. 10/06/19 13:08 Plan: continue detox. lidoderm patch.
[2019-10-06] MEDS: hydrOXYzine PAMOATE 25 MG CAPSULE (FP) PO PRN (17:28)
[2019-10-06] MEDS: LIDOCAINE PATCH REMOVAL MC SCH (22:53)
[2019-10-06] MEDS: THIAMINE HCL 100 MG TABLET (FP) PO SCH (22:55)
[2019-10-07] MEDS ORDERED: chlordiazePOXIDE HCL 10 MG CAPSULE PO PRN
[2019-10-07] MEDS: BACLOFEN 10 MG TABLET (FP) PO SCH ×3 (05:25→22:40)
[2019-10-07] MEDS: chlordiazePOXIDE HCL 10 MG CAPSULE PO SCH ×2 (05:25→17:56)
[2019-10-07] MEDS: hydrOXYzine PAMOATE 25 MG CAPSULE (FP) PO PRN (05:26)
--- NOTE | 2019-10-07 09:59 | PN ---
S CIWA - CIWA Score Nausea/Vomitin-No Nausea/No Vomiting Muscle Tremors: 1-None Visible, but [place] Anxiety: 2 Agitation: 1-Slight > Activity Paroxysmal Sweats: No Perspiration Orientation: 0-Oriented Tacttile Disturbances: 0-None Auditory Disturbances: 0-None Visual Disturbances: 0-None Headache: 0-None Present CIWA-Ar Total Score: 4 [facility] Progress Note (SOAP) Subjective: 54 years old female admitted on 10/04/19 for alcohol withdrawal sx management treated with librium detox regimen patient tolerated well long history of hypertension treated with amlodipin benazepril hctz and clonidine chart reviewed continue home medications Objective: 10/07/19 10:01 Vital Signs Temperature 98.8 F 10/07/19 09:52 Pulse Rate 75 10/07/19 09:52 Respiratory Rate 18 10/07/19 09:52 Blood Pressure 142/88 10/07/19 09:52 O2 Sat by Pulse Oximetry (%) Laboratory Last Values WBC 3.8 K/mm3 (4.0-10.0) L 10/05/19 08:06 RBC 4.70 M/mm3 (3.60-5.2) 10/05/19 08:06 Hgb 13.3 GM/dL (10.7-15.3) 10/05/19 08:06 Hct 41.3 % (32.4-45.2) 10/05/19 08:06 MCV 87.9 fl (80-96) 10/05/19 08:06 MCH 28.2 pg (25.7-33.7) 10/05/19 08:06 MCHC 32.1 g/dl (32.0-36.0) 10/05/19 08:06 RDW 14.3 % (11.6-15.6) 10/05/19 08:06 Plt Count 276 K/MM3 (134-434) 10/05/19 08:06 MPV 8.2 fl (7.5-11.1) 10/05/19 08:06 Sodium 141 mmol/L (136-145) 10/05/19 08:06 Potassium 5.0 mmol/L (3.5-5.1) 10/05/19 08:06 Chloride 108 mmol/L (98-107) H 10/05/19 08:06 Carbon Dioxide 29 mmol/L (21-32) 10/05/19 08:06 Anion Gap 4 MMOL/L (8-16) L 10/05/19 08:06 BUN 18.0 mg/dL (7-18) 10/05/19 08:06 Creatinine 0.8 mg/dL (0.55-1.3) 10/05/19 08:06 Est GFR (CKD-EPI)AfAm 98.24 10/05/19 08:06 Est GFR (CKD-EPI)NonAf 84.76 10/05/19 08:06 Random Glucose 84 mg/dL (74-106) 10/05/19 08:06 Calcium 9.3 mg/dL (8.5-10.1) 10/05/19 08:06 Total Bilirubin 0.2 mg/dL (0.2-1) 10/05/19 08:06 AST 13 U/L (15-37) L 10/05/19 08:06 ALT 16 U/L (13-61) 10/05/19 08:06 Alkaline Phosphatase 73 U/L (45-117) 10/05/19 08:06 Total Protein 6.3 g/dl (6.4-8.2) L 10/05/19 08:06 Albumin 3.2 g/dl (3.4-5.0) L 10/05/19 08:06 POC Urine HCG, Qual Negative 10/04/19 11:35 RPR Titer Nonreactive (NONREACTIVE) 10/05/19 08:06 HIV 1&2 Antibody Screen Negative 10/05/19 08:06 HIV P24 Antigen Negative 10/05/19 08:06 lab noted bp elevation resume home antihypertensive medications Assessment: 10/07/19 10:02 alcohol withdrawal sx Plan: continue librium detox regimen
[2019-10-07] MEDS: PATIENT'S OWN MEDICATION (NON-FORMULARY) (Ipratropium/Albuterol Sulfate [Combivent Respima IH SCH (10:43)
[2019-10-07] MEDS: BUDESONIDE/FORMETEROL FUMARATE 160/4.5 mcg INHALER IH SCH (10:43)
[2019-10-07] MEDS: PRENATAL VITAMINS W/ FOLIC ACID TABLET (FP) PO SCH (10:44)
[2019-10-07] MEDS: NAPROXEN 500 MG TABLET (FP) PO SCH ×2 (10:44→22:41)
[2019-10-07] MEDS: CHOLECALCIFEROL (VIT D3) 1,000 UNIT (25 MCG) TABLET PO SCH (10:44)
[2019-10-07] MEDS: amLODIPine BESYLATE 5 MG TABLET (FP) PO SCH (10:45)
[2019-10-07] MEDS: cloNIDine HCL 0.1 MG TABLET PO SCH (10:45)
[2019-10-07] MEDS: LIDOCAINE 5% TOPICAL PATCH TP SCH (10:46)
[2019-10-07] MEDS: ALBUTEROL SO4 2.5/IPRATROPIUM 0.5 INH SOL 3 ML VIAL.NEB. NEB SCH ×2 (15:43→22:40)
[2019-10-07] MEDS: ACETAMINOPHEN 325 MG TABLET (FP) PO PRN (15:44)
[2019-10-07] MEDS: THIAMINE HCL 100 MG TABLET (FP) PO SCH (22:40)
[2019-10-07] MEDS: LIDOCAINE PATCH REMOVAL MC SCH (22:40)
[2019-10-07] MEDS: MELATONIN 5 MG TABLETS PO PRN (22:58)
[2019-10-07] MEDS: NICOTINE POLACRILEX 2 MG GUM BUC PRN (23:08)
[2019-10-08] MEDS: ALBUTEROL SO4 2.5/IPRATROPIUM 0.5 INH SOL 3 ML VIAL.NEB. NEB SCH (02:15)
[2019-10-08] MEDS ORDERED: ALBUTEROL SO4 2.5/IPRATROPIUM 0.5 INH SOL 3 ML VIAL.NEB. NEB PRN (02:37)
[2019-10-08] MEDS ORDERED: ALBUTEROL SO4 2.5/IPRATROPIUM 0.5 INH SOL 3 ML VIAL.NEB. NEB ONE (02:38)
[2019-10-08] MEDS ORDERED: chlordiazePOXIDE HCL 10 MG CAPSULE PO ONE (05:00)
[2019-10-08] MEDS: BACLOFEN 10 MG TABLET (FP) PO SCH ×2 (05:39→15:40)
[2019-10-08] MEDS: PRENATAL VITAMINS W/ FOLIC ACID TABLET (FP) PO SCH (10:32)
[2019-10-08] MEDS: cloNIDine HCL 0.1 MG TABLET PO SCH (10:33)
[2019-10-08] MEDS: amLODIPine BESYLATE 5 MG TABLET (FP) PO SCH (10:33)
[2019-10-08] MEDS: LIDOCAINE 5% TOPICAL PATCH TP SCH (10:33)
[2019-10-08] MEDS: BUDESONIDE/FORMETEROL FUMARATE 160/4.5 mcg INHALER IH SCH (10:33)
[2019-10-08] MEDS: NAPROXEN 500 MG TABLET (FP) PO SCH (10:33)
[2019-10-08] MEDS: PATIENT'S OWN MEDICATION (NON-FORMULARY) (Ipratropium/Albuterol Sulfate [Combivent Respima IH SCH (10:34)
--- NOTE | 2019-10-08 11:30 | DS ---
[facility] Detox Discharge Summary Admission Date: 10/04/19 Discharge Date: 10/08/19 - History Present History: Alcohol Dependence Additional Comments: 54 years old female admitted on 10/04/19 for alcohol withdrawal sx management treated with librium detox regimen discuss lab with patient patient is alert oriented x 3 cardiac S1S2 regular rate rhythm respiratory clear no wheezing on auscultation skin warm and dry - Physical Exam Results Vital Signs: Vital Signs Temperature 96.4 F L 10/08/19 09:16 Pulse Rate 86 10/08/19 09:16 Respiratory Rate 18 10/08/19 09:16 Blood Pressure 135/89 10/08/19 09:16 O2 Sat by Pulse Oximetry (%) 98 10/08/19 02:45 Pertinent Admission Physical Exam Findings: alcohol withdrawal sx Laboratory Last Values WBC 3.8 K/mm3 (4.0-10.0) L 10/05/19 08:06 RBC 4.70 M/mm3 (3.60-5.2) 10/05/19 08:06 Hgb 13.3 GM/dL (10.7-15.3) 10/05/19 08:06 Hct 41.3 % (32.4-45.2) 10/05/19 08:06 MCV 87.9 fl (80-96) 10/05/19 08:06 MCH 28.2 pg (25.7-33.7) 10/05/19 08:06 MCHC 32.1 g/dl (32.0-36.0) 10/05/19 08:06 RDW 14.3 % (11.6-15.6) 10/05/19 08:06 Plt Count 276 K/MM3 (134-434) 10/05/19 08:06 MPV 8.2 fl (7.5-11.1) 10/05/19 08:06 Sodium 141 mmol/L (136-145) 10/05/19 08:06 Potassium 5.0 mmol/L (3.5-5.1) 10/05/19 08:06 Chloride 108 mmol/L (98-107) H 10/05/19 08:06 Carbon Dioxide 29 mmol/L (21-32) 10/05/19 08:06 Anion Gap 4 MMOL/L (8-16) L 10/05/19 08:06 BUN 18.0 mg/dL (7-18) 10/05/19 08:06 Creatinine 0.8 mg/dL (0.55-1.3) 10/05/19 08:06 Est GFR (CKD-EPI)AfAm 98.24 10/05/19 08:06 Est GFR (CKD-EPI)NonAf 84.76 10/05/19 08:06 Random Glucose 84 mg/dL (74-106) 10/05/19 08:06 Calcium 9.3 mg/dL (8.5-10.1) 10/05/19 08:06 Total Bilirubin 0.2 mg/dL (0.2-1) 10/05/19 08:06 AST 13 U/L (15-37) L 10/05/19 08:06 ALT 16 U/L (13-61) 10/05/19 08:06 Alkaline Phosphatase 73 U/L (45-117) 10/05/19 08:06 Total Protein 6.3 g/dl (6.4-8.2) L 10/05/19 08:06 Albumin 3.2 g/dl (3.4-5.0) L 10/05/19 08:06 POC Urine HCG, Qual Negative 10/04/19 11:35 RPR Titer Nonreactive (NONREACTIVE) 10/05/19 08:06 HIV 1&2 Antibody Screen Negative 10/05/19 08:06 HIV P24 Antigen Negative 10/05/19 08:06 lab noted - Treatment Hospital Course: Detox Protocol Followed, Detoxed Safely, Responded well, Discharged Condition Good, Rehab Referral Accepted Patient has [facility] - Medication Discharge Medications: Ambulatory Orders Amlodipine Besylate/Benazepril [Lotrel 5-10 mg Capsule] 5 mg PO DAILY 02/27/19 Clonidine HCl [Catapres] 0.2 mg PO DAILY 02/27/19 Esomeprazole Magnesium 40 mg PO DAILY 02/27/19 Meclizine HCl 50 mg PO BID 02/27/19 Multivitamins [Multivit ([facility] Formulary)] 1 tab PO DAILY 02/27/19 Albuterol Sulfate Inhaler - [Ventolin HFA Inhaler -] 2 inh PO Q4H PRN #1 inhaler 05/25/19 Baclofen [Lioresal -] 10 mg PO TID 10 Days #30 tablet 06/24/19 Albuterol 2.5/Ipratropium 0.5 [Duoneb -] 1 neb NEB TID 10/04/19 Budesonide/Formeterol Fumarate [SYMBICORT 160/4.5mcg -] 1 inh PO DAILY 10/04/19 Cholecalciferol (Vitamin D3) [Vitamin D3] 2,000 unit PO DAILY 10/04/19 Ipratropium/Albuterol Sulfate [Combivent Respimat 20-100 Mcg] 4 gm IH DAILY Naproxen [Naprosyn -] 500 mg PO DAILY 10/04/19 - Diagnosis (1) Alcohol dependence with uncomplicated withdrawal Current Visit: Yes Status: Acute (2) Asthma Current Visit: Yes Status: Chronic Qualifiers: Asthma severity: mild Asthma persistence: intermittent Asthma complication type: with status asthmaticus Qualified Code(s): J45.22 - Mild intermittent asthma with status asthmaticus (3) COPD (chronic obstructive pulmonary disease) Current Visit: Yes Status: Chronic Qualifiers: COPD type: emphysema Emphysema type: unilateral Qualified Code(s): J43.0 - Unilateral pulmonary emphysema [MacLeod's syndrome] (4) Essential (primary) hypertension Current Visit: Yes Status: Chronic (5) GERD (gastroesophageal reflux disease) Current Visit: Yes Status: Chronic Qualifiers: Esophagitis presence: without esophagitis Qualified Code(s): K21.9 - Gastro -esophageal reflux disease without esophagitis (6) Substance induced mood disorder Current Visit: Yes Status: Suspected - AMA Did Patient Leave Against Medical Advice: No CIWA Score - CIWA Score Nausea/Vomitin-No Nausea/No Vomiting Muscle Tremors: 1-None Visible, but [place] Anxiety: 1-Mildly Anxious Agitation: 0-Normal Activity Paroxysmal Sweats: No Perspiration Orientation: 0-Oriented Tacttile Disturbances: 0-None Auditory Disturbances: 0-None Visual Disturbances: 0-None Headache: 0-None Present CIWA-Ar Total Score: 2
[2019-10-08] MEDS: CHOLECALCIFEROL (VIT D3) 1,000 UNIT (25 MCG) TABLET PO SCH (13:55)
[2019-10-08 17:48] VITALS: BP 136/87; PULSE 75; TEMP 96.5
== END 2019-10-08 18:16 | disposition other institution (70) | DRG 774 ==
LOC: YASAS 10:02 → Y3N 12:29
PROVIDERS: ADMIT Allergy & Immunology; ATTEND Allergy & Immunology
PROC: HZ2ZZZZ Detoxification Services for Substance Abuse Treatment (ICD-10-PCS; principal; 2019-10-04)
DX: F10.230 Alcohol dependence with withdrawal, uncomplicated (principal); F14.20 Cocaine dependence, uncomplicated; F17.210 Nicotine dependence, cigarettes, uncomplicated; F31.9 Bipolar disorder, unspecified; F19.24 Other psychoactive substance dependence with psychoactive substance-induced mood disorder; E05.90 Thyrotoxicosis, unspecified without thyrotoxic crisis or storm; I10 Essential (primary) hypertension; J43.0 Unilateral pulmonary emphysema [MacLeod's syndrome]; J45.22 Mild intermittent asthma with status asthmaticus; K21.9 Gastro-esophageal reflux disease without esophagitis; M54.5 Low back pain; Z91.018 Allergy to other foods; Z91.02 Food additives allergy status; Z88.8 Allergy status to other drugs, medicaments and biological substances; Z91.5 Personal history of self-harm
CPT/HCPCS: 36415; 80053; 81025; 85027; 86593; 87389; 94640; J0475; J0735

== ENCOUNTER 2019-10-08 15:47 | Inpatient (IN) | payer OTHER ==
--- NOTE | 2019-10-08 11:36 | HP ---
[facility] Rehab Assess/Revision - Admission History Admitted to Rehab from: [facility] Date of Admission to Rehab: 10/08/19 - Findings Detox History & Physical reviewed: Yes Concur with findings: Yes Comments/Additional Findings: transferred from detox to rehab admission as per protocol Inpatient Rehab Admission - Rehab Decision to Admit Inpatient rehab admission?: Yes - Initial Determination Are CD services needed?: Yes Free of communicable disease: Yes Not in need of hospitalization: Yes - Rehab Admission Criteria Previous failed treatment: Yes Poor recovery environment: Yes Comorbidities: Yes Lacks judgement: Yes Patient is meeting Inpatient Rehab admission criteria:: Yes
[~2019-10-08 15:47] MED LIST: ACETAMINOPHEN 325 MG TABLET (FP) PO PRN; ALBUTEROL SO4 8 GM HFA INHALER IH PRN; COLLOIDAL OATMEAL 1 BAR EACH TP PRN; IBUPROFEN 400 MG TABLET (FP) PO PRN; LOPERAMIDE HCL 2 MG CAPSULE PO PRN; MAG HYDROX/AL HYDROX/SIMETH 30 ML UNIT-DOSE CUP PO PRN; MAGNESIUM CITRATE 300 ML BOTTLE PO PRN; MAGNESIUM HYDROX 2400MG/30ML ORAL SUSPENSION 30 ML CUP PO PRN; MENTHOL/PHENOL 1 EACH UD MM PRN; NICOTINE 14 MG/24 HOURS TOPICAL PATCH TD PRN; NICOTINE POLACRILEX 2 MG GUM BC PRN; P-EPHED 60MG/TRIPROLIDI 2.5MG TABLET PO PRN; guaiFENesin 200 MG/10 ML 10 ML UNIT-DOSE CUPS PO PRN
[2019-10-08] MEDS: BACLOFEN 10 MG TABLET (FP) PO SCH (21:38)
[2019-10-08] MEDS: LIDOCAINE PATCH REMOVAL MC SCH (21:38)
[2019-10-08] MEDS: NAPROXEN 500 MG TABLET (FP) PO SCH (21:39)
[2019-10-08] MEDS: BUDESONIDE/FORMETEROL FUMARATE 160/4.5 mcg INHALER IH SCH (21:39)
[2019-10-08] MEDS: THIAMINE HCL 100 MG TABLET (FP) PO SCH (21:40)
[2019-10-08] MEDS ORDERED: MELATONIN 5 MG TABLETS PO PRN (22:00)
[2019-10-08] MEDS: ALBUTEROL SO4 2.5/IPRATROPIUM 0.5 INH SOL 3 ML VIAL.NEB. NEB PRN (22:08)
[2019-10-09] MEDS: BACLOFEN 10 MG TABLET (FP) PO SCH ×3 (07:13→21:18)
[2019-10-09] MEDS ORDERED: PT OWN MED DRAWER 7, Y5N ONE (09:13)
[2019-10-09] MEDS: NAPROXEN 500 MG TABLET (FP) PO SCH ×2 (09:32→21:18)
[2019-10-09] MEDS: BUDESONIDE/FORMETEROL FUMARATE 160/4.5 mcg INHALER IH SCH ×2 (09:32→21:19)
[2019-10-09] MEDS ORDERED: PATIENT'S OWN MEDICATION (NON-FORMULARY) (Ipratropium/Albuterol Sulfate [Combivent Respima IH SCH (10:00)
[2019-10-09] MEDS ORDERED: LIDOCAINE 5% TOPICAL PATCH TP SCH (10:00)
[2019-10-09] MEDS ORDERED: amLODIPine BESYLATE 5 MG TABLET (FP) PO SCH (10:00)
[2019-10-09] MEDS ORDERED: PRENATAL VITAMINS W/ FOLIC ACID TABLET (FP) PO SCH (10:00)
[2019-10-09] MEDS ORDERED: cloNIDine HCL 0.1 MG TABLET PO SCH (10:00)
[2019-10-09] MEDS ORDERED: CHOLECALCIFEROL (VIT D3) 1,000 UNIT (25 MCG) TABLET PO SCH (10:00)
[2019-10-09] MEDS ORDERED: FLU VACCINE QUAD 60 MCG/0.5 ML (MDV 19-20) IM ONE (12:00)
[2019-10-09] MEDS ORDERED: PNEUMOCOCCAL 23 VACCINE 0.5 ML VIAL IM ONE (12:00)
[2019-10-09] MEDS ORDERED: PNEUMOC 13-VAL CONJ-DIP CRM/PF 0.5 ML DISP.SYRIN IM ONE (12:00)
--- NOTE | 2019-10-09 12:31 | DS ---
[facility] Rehab Discharge Summary - [facility] Rehab Discharge Summary Admission Date: 10/08/19 Discharge Date: 10/10/19 - History Present History: Alcohol dependence, Cocaine dependence Pertinent Past History: pt reports drinking 4-5 x/week 2 pints and 12 beers, . pmhx : long QTc , htn , copd , asthma , gout , gerd , scoliosis - Discharge Physical Exam Vital Signs: Vital Signs Temperature 97.9 F 10/09/19 12:04 Pulse Rate 73 10/09/19 07:01 Respiratory Rate 18 10/09/19 07:01 Blood Pressure 141/92 10/09/19 07:01 O2 Sat by Pulse Oximetry (%) Pertinent Admission Physical Exam Findings: Physical General Appearance: No Apparent Distress HEENTM: Normocephalic, Respiratory: Lungs Clear, Neck: suppleTrachea in good position Cardiology: Regular Rhythm & Rate Abdominal: +BSNon Tender, Soft Musculoskeletal: Gait Steady, full weight bearing, Neurological: Cn 2-12 intact, Motor Strength 5/5 - Treatment Discharge Condition: Discharge condition good (Medically stable for discharge. Pt has not accepted an outpatient referrral.) Hospital Course: patient attended groups, had 1:1 meetings with her counselor and was adherent to her treatment plan and medication regimen. - Medication Discharge Medications: Ambulatory Orders Clonidine HCl [Catapres] 0.2 mg PO DAILY 02/27/19 Esomeprazole Magnesium 40 mg PO DAILY 02/27/19 Multivitamins [Multivit ([facility] Formulary)] 1 tab PO DAILY 02/27/19 Albuterol 2.5/Ipratropium 0.5 [Duoneb -] 1 neb NEB TID #1 amp 10/09/19 Albuterol Sulfate Inhaler - [Ventolin HFA Inhaler -] 2 inh PO Q4H PRN #1 inhaler 10/09/19 Amlodipine Besylate/Benazepril [Lotrel 5-10 mg Capsule] 5 mg PO DAILY #14 capsule 10/09/19 Baclofen [Lioresal -] 10 mg PO TID 10 Days #30 tablet 10/09/19 Budesonide/Formeterol Fumarate [SYMBICORT 160/4.5mcg -] 1 inh PO DAILY #1 inhaler 10/09/19 Cholecalciferol (Vitamin D3) [Vitamin D3] 2,000 unit PO DAILY #14 tablet Ipratropium/Albuterol Sulfate [Combivent Respimat 20-100 Mcg] 4 gm IH DAILY #1 mist.inhal 10/09/19 Meclizine HCl 50 mg PO BID #20 tablet 10/09/19 Naproxen [Naprosyn -] 500 mg PO DAILY #14 tablet 10/09/19 - Discharge Instructions Diet, activity, other medical instructions: Diet: as tolerated Activity: as tolerated Other medical instructions: Please seek out an aftercare referral or attend 12 step program. - Diagnosis (1) Uncomplicated alcohol dependence Current Visit: No Status: Chronic (2) Alcohol dependence with uncomplicated withdrawal Current Visit: No Status: Chronic (3) Cocaine dependence Current Visit: No Status: Chronic Qualifiers: Substance use status: uncomplicated Qualified Code(s): F14.20 - Cocaine dependence, uncomplicated - Follow-up Referral Minutes to complete discharge: 20 - AMA Did Patient Leave Against Medical Advice: No
[2019-10-09] MEDS: ALBUTEROL SO4 2.5/IPRATROPIUM 0.5 INH SOL 3 ML VIAL.NEB. NEB PRN (12:52)
[2019-10-09] MEDS: COMBIVENT RESPIMAT PO SCH ×2 (14:00→21:19)
[2019-10-09] MEDS: THIAMINE HCL 100 MG TABLET (FP) PO SCH (21:18)
[2019-10-09] MEDS: LIDOCAINE PATCH REMOVAL MC SCH (21:18)
[2019-10-09] MEDS ORDERED: hydrOXYzine PAMOATE 25 MG CAPSULE (FP) PO ONE (22:42)
[2019-10-10] MEDS: BACLOFEN 10 MG TABLET (FP) PO SCH (06:08)
[2019-10-10 07:09] VITALS: BP 144/90; PULSE 78; TEMP 97.3
[2019-10-10] MEDS ORDERED: PT OWN MED DRAWER 7, Y5N ONE (08:28)
== END 2019-10-10 08:30 | disposition home or self-care (01) | DRG 772 ==
LOC: YASAS 15:47 → Y3E 15:48
PROVIDERS: ADMIT Neuromusculoskeletal Medicine & OMM; ATTEND Neuromusculoskeletal Medicine & OMM
PROC: HZ42ZZZ Group Counseling for Substance Abuse Treatment, Cognitive-Behavioral (ICD-10-PCS; principal; 2019-10-08)
DX: F10.20 Alcohol dependence, uncomplicated (principal); F14.20 Cocaine dependence, uncomplicated; Z88.8 Allergy status to other drugs, medicaments and biological substances; Z91.018 Allergy to other foods; Z91.02 Food additives allergy status
CPT/HCPCS: 90732; 94640; G0009; J0475; J0735; Q2036

== ENCOUNTER 2020-12-05 13:16 | Emergency (ER) | payer OTHER ==
[2020-12-05] MEDS ORDERED: NALOXONE HCL 0.4 MG/ML VIAL ONE (13:23)
[2020-12-05 13:32] VITALS: BMI 34.0
[2020-12-05 14:55] LABS: BASO % 1.1 % (0-2.0); EOS % 0.1 % (0-4.5); HEMATOCRIT 43.5 % (32.4-45.2); HEMOGLOBIN 14.1 GM/dL (10.7-15.3); LYMPH % 13.8 % (8-40); MCH 28.4 pg (25.7-33.7); MCHC 32.3 g/dl (32.0-36.0); MEAN CELL VOLUME 87.8 fl (80-96); MEAN PLT VOLUME 7.9 fl (7.5-11.1); MONO % 3.8 % (3.8-10.2); NEUT % 81.2 % (42.8-82.8); PLATELET COUNT 295 K/MM3 (134-434); RBC 4.96 M/mm3 (3.60-5.2); RDW 14.2 % (11.6-15.6); WHITE BLOOD COUNT 6.3 K/mm3 (4.0-10.0)
[2020-12-05 15:04] LABS: POTASSIUM 3.3 mmol/L (3.5-5.1)
[2020-12-05 15:05] LABS: ALBUMIN 3.6 g/dl (3.4-5.0); CALCIUM 8.5 mg/dL (8.5-10.1)
[2020-12-05 15:06] LABS: BLOOD UREA NITROGEN 11.4 mg/dL (7-18)
[2020-12-05 15:09] LABS: CREATININE 0.5 mg/dL (0.55-1.3)
[2020-12-05 15:11] LABS: BILIRUBIN,TOTAL 0.2 mg/dL (0.2-1)
[2020-12-05 20:21] VITALS: BP 141/71; PULSE 82; TEMP 98.5
== END 2020-12-05 22:32 | disposition home or self-care (01) ==
LOC: JER 13:16
DX: F10.10 Alcohol abuse, uncomplicated (principal)
CPT/HCPCS: 36415; 80053; 80307; 85025; 99284-25

== ENCOUNTER 2020-12-05 22:50 | Inpatient (IN) | payer OTHER ==
[2020-12-05 23:44] VITALS: BMI 30.4
[2020-12-05] MEDS ORDERED: chlordiazePOXIDE HCL 25 MG CAPSULE PO PRN (23:45)
[2020-12-05] MEDS ORDERED: MENTHOL/PHENOL 1 EACH UD MM PRN (23:45)
[2020-12-05] MEDS ORDERED: BISMUTH SUBSALICYLATE 524 MG/30 ML UD PO PRN (23:45)
[2020-12-05] MEDS ORDERED: MAGNESIUM CITRATE 300 ML BOTTLE PO PRN (23:45)
[2020-12-05] MEDS ORDERED: MAGNESIUM HYDROX 2400MG/30ML ORAL SUSPENSION 30 ML CUP PO PRN (23:45)
[2020-12-05] MEDS ORDERED: ONDANSETRON *ODT* 4 MG TABLET SL PRN (23:45)
[2020-12-05] MEDS ORDERED: NICOTINE POLACRILEX 2 MG GUM BUC PRN (23:45)
[2020-12-05] MEDS ORDERED: METHOCARBAMOL 500 MG TABLET PO PRN (23:45)
[2020-12-05] MEDS ORDERED: ACETAMINOPHEN 325 MG TABLET (FP) PO PRN ×2 (23:45)
[2020-12-06] MEDS ORDERED: chlordiazePOXIDE HCL 25 MG CAPSULE PO PRN (00:46)
[2020-12-06] MEDS: MAG HYDROX/AL HYDROX/SIMETH 30 ML UNIT-DOSE CUP PO PRN (01:56)
[2020-12-06] MEDS: chlordiazePOXIDE HCL 25 MG CAPSULE PO SCH ×7 (03:12→22:42)
[2020-12-06] MEDS ORDERED: chlordiazePOXIDE HCL 25 MG CAPSULE PO SCH (05:00)
[2020-12-06] MEDS: PRENATAL VITAMINS W/ FOLIC ACID TABLET (FP) PO SCH (10:48)
[2020-12-06] MEDS: NICOTINE 14 MG/24 HOURS TOPICAL PATCH TD SCH (10:54)
[2020-12-06 13:02] LABS: HEMATOCRIT 42.2 % (32.4-45.2); HEMOGLOBIN 13.7 GM/dL (10.7-15.3); MCH 28.3 pg (25.7-33.7); MCHC 32.5 g/dl (32.0-36.0); MEAN CELL VOLUME 87.2 fl (80-96); MEAN PLT VOLUME 8.6 fl (7.5-11.1); PLATELET COUNT 302 K/MM3 (134-434); RBC 4.84 M/mm3 (3.60-5.2); RDW 14.3 % (11.6-15.6); WHITE BLOOD COUNT 4.8 K/mm3 (4.0-10.0)
[2020-12-06 13:08] LABS: POTASSIUM 4.1 mmol/L (3.5-5.1)
[2020-12-06 13:11] LABS: CALCIUM 9.2 mg/dL (8.5-10.1)
[2020-12-06 13:12] LABS: ALBUMIN 3.4 g/dl (3.4-5.0); BLOOD UREA NITROGEN 18.1 mg/dL (7-18)
[2020-12-06 13:15] LABS: CREATININE 0.8 mg/dL (0.55-1.3)
[2020-12-06 13:18] LABS: BILIRUBIN,TOTAL 0.8 mg/dL (0.2-1); TOT PROT 6.7 g/dl (6.4-8.2)
[2020-12-06] MEDS: IBUPROFEN 400 MG TABLET (FP) PO PRN ×2 (16:12→20:03)
[2020-12-06] MEDS ORDERED: ALBUTEROL SO4 HFA INHALER IH PRN (19:32)
[2020-12-06] MEDS: amLODIPine BESYLATE 5 MG TABLET (FP) PO SCH (19:58)
[2020-12-06] MEDS: ATORVASTATIN CA 10 MG TABLET (FP) PO SCH (22:39)
[2020-12-06] MEDS: valACYclovir HCL 500 MG TABLET (FP) PO SCH (22:39)
[2020-12-06] MEDS: cloNIDine HCL 0.1 MG TABLET PO SCH (22:39)
[2020-12-06] MEDS: CYCLOBENZAPRINE HCL 10 MG TABLET (FP) PO SCH (22:39)
[2020-12-06] MEDS: MELATONIN 5 MG TABLETS PO SCH (22:39)
[2020-12-06] MEDS: THIAMINE HCL 100 MG TABLET (FP) PO SCH (22:39)
[2020-12-06] MEDS: BUDESONIDE/FORMETEROL FUMARATE 160/4.5 mcg INHALER IH SCH (22:48)
[2020-12-07] MEDS ORDERED: chlordiazePOXIDE HCL 10 MG CAPSULE PO PRN
[2020-12-07] MEDS: metroNIDAZOLE 500 MG TABLET PO SCH ×3 (00:56→21:49)
[2020-12-07] MEDS ORDERED: chlordiazePOXIDE HCL 10 MG CAPSULE PO SCH (05:00)
[2020-12-07] MEDS: chlordiazePOXIDE HCL 25 MG CAPSULE PO SCH ×4 (07:29→22:17)
[2020-12-07] MEDS: valACYclovir HCL 500 MG TABLET (FP) PO SCH ×2 (10:34→21:49)
[2020-12-07] MEDS: cloNIDine HCL 0.1 MG TABLET PO SCH ×2 (10:34→21:50)
[2020-12-07] MEDS: CYCLOBENZAPRINE HCL 10 MG TABLET (FP) PO SCH ×2 (10:35→21:49)
[2020-12-07] MEDS: amLODIPine BESYLATE 5 MG TABLET (FP) PO SCH (10:35)
[2020-12-07] MEDS: PANTOPRAZOLE 40 MG TABLET PO SCH (10:35)
[2020-12-07] MEDS: IBUPROFEN 400 MG TABLET (FP) PO PRN ×2 (10:42→21:49)
[2020-12-07] MEDS: BUDESONIDE/FORMETEROL FUMARATE 160/4.5 mcg INHALER IH SCH ×2 (10:42→21:51)
[2020-12-07] MEDS: NICOTINE 14 MG/24 HOURS TOPICAL PATCH TD SCH (10:42)
[2020-12-07] MEDS: PRENATAL VITAMINS W/ FOLIC ACID TABLET (FP) PO SCH (12:14)
[2020-12-07] MEDS: OMEGA-3 ACID ETHYL ESTERS (FATTY-ACIDS) 1 GM CAPSULE (FP) PO SCH (17:08)
[2020-12-07] MEDS: CHOLECALCIFEROL (VIT D3) 1,000 UNIT (25 MCG) TABLET PO SCH (17:09)
[2020-12-07] MEDS: ATORVASTATIN CA 10 MG TABLET (FP) PO SCH (21:49)
[2020-12-07] MEDS: GABAPENTIN 300 MG CAPSULE PO SCH (21:49)
[2020-12-07] MEDS: THIAMINE HCL 100 MG TABLET (FP) PO SCH (21:50)
[2020-12-07] MEDS: MELATONIN 5 MG TABLETS PO SCH (21:51)
[2020-12-08] MEDS ORDERED: chlordiazePOXIDE HCL 10 MG CAPSULE PO PRN
[2020-12-08] MEDS ORDERED: chlordiazePOXIDE HCL 10 MG CAPSULE PO SCH (05:00)
[2020-12-08] MEDS: chlordiazePOXIDE HCL 10 MG CAPSULE PO SCH ×4 (07:00→22:39)
[2020-12-08] MEDS: valACYclovir HCL 500 MG TABLET (FP) PO SCH ×2 (09:52→22:36)
[2020-12-08] MEDS: GABAPENTIN 300 MG CAPSULE PO SCH ×2 (09:53→22:36)
[2020-12-08] MEDS: cloNIDine HCL 0.1 MG TABLET PO SCH ×2 (09:54→23:56)
[2020-12-08] MEDS: PANTOPRAZOLE 40 MG TABLET PO SCH (09:54)
[2020-12-08] MEDS: amLODIPine BESYLATE 5 MG TABLET (FP) PO SCH (09:54)
[2020-12-08] MEDS: CYCLOBENZAPRINE HCL 10 MG TABLET (FP) PO SCH ×2 (09:54→22:36)
[2020-12-08] MEDS: IBUPROFEN 400 MG TABLET (FP) PO PRN (09:54)
[2020-12-08] MEDS ORDERED: metroNIDAZOLE 250 MG TABLET PO SCH (10:00)
[2020-12-08] MEDS: PRENATAL VITAMINS W/ FOLIC ACID TABLET (FP) PO SCH (10:01)
[2020-12-08] MEDS: NICOTINE 14 MG/24 HOURS TOPICAL PATCH TD SCH (10:01)
[2020-12-08] MEDS: BUDESONIDE/FORMETEROL FUMARATE 160/4.5 mcg INHALER IH SCH ×2 (11:18→22:30)
[2020-12-08] MEDS: LIDOCAINE 5% TOPICAL PATCH TP SCH (12:22)
[2020-12-08] MEDS: CHOLECALCIFEROL (VIT D3) 1,000 UNIT (25 MCG) TABLET PO SCH (12:23)
[2020-12-08] MEDS: OMEGA-3 ACID ETHYL ESTERS (FATTY-ACIDS) 1 GM CAPSULE (FP) PO SCH (12:23)
[2020-12-08] MEDS: ALBUTEROL SO4 2.5/IPRATROPIUM 0.5 INH SOL 3 ML VIAL.NEB. NEB SCH (15:49)
[2020-12-08] MEDS: ALBUTEROL SULFATE IH SCH (15:51)
[2020-12-08] MEDS: MIST INHAL IH SCH (15:51)
[2020-12-08] MEDS: [UNRECOGNIZED DRUG - OTHER] IH SCH (15:51)
[2020-12-08] MEDS: IPRATROPIUM IH SCH (15:51)
[2020-12-08] MEDS: MAG HYDROX/AL HYDROX/SIMETH 30 ML UNIT-DOSE CUP PO PRN (20:25)
[2020-12-08] MEDS: ATORVASTATIN CA 10 MG TABLET (FP) PO SCH (22:36)
[2020-12-08] MEDS: MELATONIN 5 MG TABLETS PO SCH (22:37)
[2020-12-08] MEDS: THIAMINE HCL 100 MG TABLET (FP) PO SCH (22:37)
[2020-12-08] MEDS: LIDOCAINE PATCH REMOVAL MC SCH (22:40)
[2020-12-09] MEDS ORDERED: chlordiazePOXIDE HCL 10 MG CAPSULE PO ONE (05:00)
[2020-12-09] MEDS: chlordiazePOXIDE HCL 10 MG CAPSULE PO SCH ×2 (05:52→17:57)
[2020-12-09] MEDS: MAG HYDROX/AL HYDROX/SIMETH 30 ML UNIT-DOSE CUP PO PRN (05:52)
[2020-12-09] MEDS: IBUPROFEN 400 MG TABLET (FP) PO PRN ×2 (05:55→18:00)
[2020-12-09] MEDS: cloNIDine HCL 0.1 MG TABLET PO SCH ×2 (11:25→22:56)
[2020-12-09] MEDS: CYCLOBENZAPRINE HCL 10 MG TABLET (FP) PO SCH ×2 (11:25→22:53)
[2020-12-09] MEDS: GABAPENTIN 300 MG CAPSULE PO SCH ×2 (11:26→22:54)
[2020-12-09] MEDS: OMEGA-3 ACID ETHYL ESTERS (FATTY-ACIDS) 1 GM CAPSULE (FP) PO SCH (11:26)
[2020-12-09] MEDS: PANTOPRAZOLE 40 MG TABLET PO SCH (11:27)
[2020-12-09] MEDS: CHOLECALCIFEROL (VIT D3) 1,000 UNIT (25 MCG) TABLET PO SCH (11:27)
[2020-12-09] MEDS: valACYclovir HCL 500 MG TABLET (FP) PO SCH ×2 (11:27→22:54)
[2020-12-09] MEDS: amLODIPine BESYLATE 5 MG TABLET (FP) PO SCH (11:28)
[2020-12-09] MEDS: LIDOCAINE 5% TOPICAL PATCH TP SCH (11:28)
[2020-12-09] MEDS: PRENATAL VITAMINS W/ FOLIC ACID TABLET (FP) PO SCH (11:28)
[2020-12-09] MEDS: NICOTINE 14 MG/24 HOURS TOPICAL PATCH TD SCH (11:28)
[2020-12-09] MEDS: ALBUTEROL SO4 2.5/IPRATROPIUM 0.5 INH SOL 3 ML VIAL.NEB. NEB SCH (11:29)
[2020-12-09] MEDS: BUDESONIDE/FORMETEROL FUMARATE 160/4.5 mcg INHALER IH SCH ×2 (11:30→22:58)
[2020-12-09] MEDS ORDERED: MASKS NR ONE (22:49)
[2020-12-09] MEDS: ATORVASTATIN CA 10 MG TABLET (FP) PO SCH (22:54)
[2020-12-09] MEDS: MELATONIN 5 MG TABLETS PO SCH (22:54)
[2020-12-09] MEDS: THIAMINE HCL 100 MG TABLET (FP) PO SCH (22:55)
[2020-12-09] MEDS: LIDOCAINE PATCH REMOVAL MC SCH (22:56)
[2020-12-10] MEDS ORDERED: chlordiazePOXIDE HCL 10 MG CAPSULE PO ONE (05:00)
[2020-12-10] MEDS: MAG HYDROX/AL HYDROX/SIMETH 30 ML UNIT-DOSE CUP PO PRN (07:39)
[2020-12-10] MEDS: PRENATAL VITAMINS W/ FOLIC ACID TABLET (FP) PO SCH (10:21)
[2020-12-10] MEDS: NICOTINE 14 MG/24 HOURS TOPICAL PATCH TD SCH (10:21)
[2020-12-10] MEDS: CYCLOBENZAPRINE HCL 10 MG TABLET (FP) PO SCH (10:22)
[2020-12-10] MEDS: amLODIPine BESYLATE 5 MG TABLET (FP) PO SCH (10:22)
[2020-12-10] MEDS: OMEGA-3 ACID ETHYL ESTERS (FATTY-ACIDS) 1 GM CAPSULE (FP) PO SCH (10:22)
[2020-12-10] MEDS: cloNIDine HCL 0.1 MG TABLET PO SCH (10:22)
[2020-12-10] MEDS: GABAPENTIN 300 MG CAPSULE PO SCH (10:22)
[2020-12-10] MEDS: BUDESONIDE/FORMETEROL FUMARATE 160/4.5 mcg INHALER IH SCH (10:23)
[2020-12-10] MEDS: CHOLECALCIFEROL (VIT D3) 1,000 UNIT (25 MCG) TABLET PO SCH (10:24)
[2020-12-10] MEDS: valACYclovir HCL 500 MG TABLET (FP) PO SCH (10:25)
[2020-12-10] MEDS: PANTOPRAZOLE 40 MG TABLET PO SCH (10:25)
[2020-12-10] MEDS: ALBUTEROL SO4 2.5/IPRATROPIUM 0.5 INH SOL 3 ML VIAL.NEB. NEB SCH (10:26)
[2020-12-10] MEDS: LIDOCAINE 5% TOPICAL PATCH TP SCH (10:26)
[2020-12-10 13:12] VITALS: BP 146/63; PULSE 93; TEMP 98.1
[2020-12-10] MEDS ORDERED: SIMETHICONE 80 MG TAB.CHEW (FP) PO ONE (15:21)
== END 2020-12-10 17:30 | disposition other institution (70) | DRG 774 ==
LOC: YASAS 22:50 → Y6N 23:45
PROVIDERS: ADMIT Allergy & Immunology; ATTEND Allergy & Immunology
PROC: HZ2ZZZZ Detoxification Services for Substance Abuse Treatment (ICD-10-PCS; principal; 2020-12-05)
DX: F10.230 Alcohol dependence with withdrawal, uncomplicated (principal); F10.220 Alcohol dependence with intoxication, uncomplicated; F14.20 Cocaine dependence, uncomplicated; F17.210 Nicotine dependence, cigarettes, uncomplicated; F19.24 Other psychoactive substance dependence with psychoactive substance-induced mood disorder; I10 Essential (primary) hypertension; I45.81 Long QT syndrome; J45.20 Mild intermittent asthma, uncomplicated; J43.0 Unilateral pulmonary emphysema [MacLeod's syndrome]; K21.9 Gastro-esophageal reflux disease without esophagitis; R00.0 Tachycardia, unspecified; M41.9 Scoliosis, unspecified; M54.42 Lumbago with sciatica, left side; M10.9 Gout, unspecified; B35.5 Tinea imbricata; Z91.018 Allergy to other foods; Z91.011 Allergy to milk products; Z86.11 Personal history of tuberculosis
CPT/HCPCS: 36415; 80053; 85027; 86780; 93005; 93010; 94640; C9803; J0735; U0003

== ENCOUNTER 2020-12-10 17:45 | Inpatient (IN) | payer OTHER ==
[2020-12-10] MEDS ORDERED: MAGNESIUM HYDROX 2400MG/30ML ORAL SUSPENSION 30 ML CUP PO PRN (18:44)
[2020-12-10] MEDS ORDERED: LOPERAMIDE HCL 2 MG CAPSULE PO PRN (18:44)
[2020-12-10] MEDS ORDERED: ACETAMINOPHEN 325 MG TABLET (FP) PO PRN (18:44)
[2020-12-10] MEDS ORDERED: MAG HYDROX/AL HYDROX/SIMETH 30 ML UNIT-DOSE CUP PO PRN (18:44)
[2020-12-10] MEDS ORDERED: MAGNESIUM CITRATE 300 ML BOTTLE PO PRN (18:44)
[2020-12-10] MEDS ORDERED: guaiFENesin 200 MG/10 ML 10 ML UNIT-DOSE CUPS PO PRN (18:44)
[2020-12-10] MEDS ORDERED: P-EPHED 60MG/TRIPROLIDI 2.5MG TABLET PO PRN (18:44)
[2020-12-10] MEDS ORDERED: ALBUTEROL SO4 HFA INHALER IH PRN (18:46)
[2020-12-10] MEDS: cloNIDine HCL 0.1 MG TABLET PO SCH (21:29)
[2020-12-10] MEDS: ATORVASTATIN CA 10 MG TABLET (FP) PO SCH (21:30)
[2020-12-10] MEDS: CYCLOBENZAPRINE HCL 10 MG TABLET (FP) PO PRN (21:32)
[2020-12-10] MEDS: GABAPENTIN 300 MG CAPSULE PO SCH (21:33)
[2020-12-10] MEDS: THIAMINE HCL 100 MG TABLET (FP) PO SCH (21:34)
[2020-12-10] MEDS: BUDESONIDE/FORMETEROL FUMARATE 160/4.5 mcg INHALER IH SCH (21:34)
[2020-12-10] MEDS: valACYclovir HCL 500 MG TABLET (FP) PO SCH (21:34)
[2020-12-11] MEDS: CYCLOBENZAPRINE HCL 10 MG TABLET (FP) PO PRN ×2 (06:46→17:28)
[2020-12-11] MEDS ORDERED: PT OWN MED DRAWER 7, Y5N ONE (09:24)
[2020-12-11] MEDS: BUDESONIDE/FORMETEROL FUMARATE 160/4.5 mcg INHALER IH SCH ×2 (10:29→21:26)
[2020-12-11] MEDS: amLODIPine BESYLATE 5 MG TABLET (FP) PO SCH (10:29)
[2020-12-11] MEDS: valACYclovir HCL 500 MG TABLET (FP) PO SCH ×2 (10:30→21:28)
[2020-12-11] MEDS: PRENATAL VITAMINS W/ FOLIC ACID TABLET (FP) PO SCH (10:30)
[2020-12-11] MEDS: OMEGA-3 ACID ETHYL ESTERS (FATTY-ACIDS) 1 GM CAPSULE (FP) PO SCH (10:30)
[2020-12-11] MEDS: PANTOPRAZOLE 40 MG TABLET PO SCH (10:30)
[2020-12-11] MEDS: GABAPENTIN 300 MG CAPSULE PO SCH ×2 (10:30→21:26)
[2020-12-11] MEDS: cloNIDine HCL 0.1 MG TABLET PO SCH ×2 (10:30→21:27)
[2020-12-11] MEDS ORDERED: MASKS NR ONE (10:33)
[2020-12-11] MEDS: LIDOCAINE 5% TOPICAL PATCH TP SCH (15:48)
[2020-12-11] MEDS: MELATONIN 5 MG TABLETS PO PRN (21:25)
[2020-12-11] MEDS: THIAMINE HCL 100 MG TABLET (FP) PO SCH (21:25)
[2020-12-11] MEDS: ATORVASTATIN CA 10 MG TABLET (FP) PO SCH (21:27)
[2020-12-11] MEDS: LIDOCAINE PATCH REMOVAL MC SCH (21:27)
[2020-12-12] MEDS: CYCLOBENZAPRINE HCL 10 MG TABLET (FP) PO PRN ×3 (08:00→21:26)
[2020-12-12] MEDS: valACYclovir HCL 500 MG TABLET (FP) PO SCH ×3 (10:28→21:53)
[2020-12-12] MEDS: OMEGA-3 ACID ETHYL ESTERS (FATTY-ACIDS) 1 GM CAPSULE (FP) PO SCH (10:28)
[2020-12-12] MEDS: GABAPENTIN 300 MG CAPSULE PO SCH ×2 (10:28→21:25)
[2020-12-12] MEDS: PRENATAL VITAMINS W/ FOLIC ACID TABLET (FP) PO SCH (10:28)
[2020-12-12] MEDS: BUDESONIDE/FORMETEROL FUMARATE 160/4.5 mcg INHALER IH SCH ×2 (10:28→21:27)
[2020-12-12] MEDS: cloNIDine HCL 0.1 MG TABLET PO SCH ×2 (10:28→21:25)
[2020-12-12] MEDS: PANTOPRAZOLE 40 MG TABLET PO SCH (10:29)
[2020-12-12] MEDS: amLODIPine BESYLATE 5 MG TABLET (FP) PO SCH (10:29)
[2020-12-12] MEDS: LIDOCAINE 5% TOPICAL PATCH TP SCH (10:29)
[2020-12-12] MEDS: SIMETHICONE 80 MG TAB.CHEW (FP) PO PRN (10:31)
[2020-12-12] MEDS: ATORVASTATIN CA 10 MG TABLET (FP) PO SCH (21:25)
[2020-12-12] MEDS: THIAMINE HCL 100 MG TABLET (FP) PO SCH (21:26)
[2020-12-12] MEDS: MELATONIN 5 MG TABLETS PO PRN (21:27)
[2020-12-12] MEDS: LIDOCAINE PATCH REMOVAL MC SCH (21:27)
[2020-12-13] MEDS: amLODIPine BESYLATE 5 MG TABLET (FP) PO SCH (10:39)
[2020-12-13] MEDS: PRENATAL VITAMINS W/ FOLIC ACID TABLET (FP) PO SCH (10:39)
[2020-12-13] MEDS: PANTOPRAZOLE 40 MG TABLET PO SCH (10:40)
[2020-12-13] MEDS: OMEGA-3 ACID ETHYL ESTERS (FATTY-ACIDS) 1 GM CAPSULE (FP) PO SCH (10:40)
[2020-12-13] MEDS: LIDOCAINE 5% TOPICAL PATCH TP SCH (10:40)
[2020-12-13] MEDS: GABAPENTIN 300 MG CAPSULE PO SCH ×2 (10:40→21:23)
[2020-12-13] MEDS: cloNIDine HCL 0.1 MG TABLET PO SCH ×2 (10:40→21:23)
[2020-12-13] MEDS: SIMETHICONE 80 MG TAB.CHEW (FP) PO PRN (10:40)
[2020-12-13] MEDS: BUDESONIDE/FORMETEROL FUMARATE 160/4.5 mcg INHALER IH SCH ×2 (10:41→21:24)
[2020-12-13] MEDS: valACYclovir HCL 500 MG TABLET (FP) PO SCH ×2 (10:41→21:23)
[2020-12-13] MEDS: IBUPROFEN 400 MG TABLET (FP) PO PRN (17:21)
[2020-12-13] MEDS: CYCLOBENZAPRINE HCL 10 MG TABLET (FP) PO PRN (17:21)
[2020-12-13] MEDS: MELATONIN 5 MG TABLETS PO PRN (21:23)
[2020-12-13] MEDS: THIAMINE HCL 100 MG TABLET (FP) PO SCH (21:23)
[2020-12-13] MEDS: ATORVASTATIN CA 10 MG TABLET (FP) PO SCH (21:23)
[2020-12-13] MEDS: LIDOCAINE PATCH REMOVAL MC SCH (21:24)
[2020-12-14] MEDS ORDERED: MASKS NR ONE (09:07)
[2020-12-14] MEDS: PRENATAL VITAMINS W/ FOLIC ACID TABLET (FP) PO SCH (10:00)
[2020-12-14] MEDS: BUDESONIDE/FORMETEROL FUMARATE 160/4.5 mcg INHALER IH SCH ×2 (10:01→21:32)
[2020-12-14] MEDS: SIMETHICONE 80 MG TAB.CHEW (FP) PO PRN ×2 (10:01→21:31)
[2020-12-14] MEDS: PANTOPRAZOLE 40 MG TABLET PO SCH (10:01)
[2020-12-14] MEDS: OMEGA-3 ACID ETHYL ESTERS (FATTY-ACIDS) 1 GM CAPSULE (FP) PO SCH (10:01)
[2020-12-14] MEDS: amLODIPine BESYLATE 5 MG TABLET (FP) PO SCH (10:01)
[2020-12-14] MEDS: GABAPENTIN 300 MG CAPSULE PO SCH ×2 (10:01→21:31)
[2020-12-14] MEDS: cloNIDine HCL 0.1 MG TABLET PO SCH ×2 (10:01→21:31)
[2020-12-14] MEDS: CYCLOBENZAPRINE HCL 10 MG TABLET (FP) PO PRN ×2 (10:02→22:11)
[2020-12-14] MEDS: LIDOCAINE 5% TOPICAL PATCH TP SCH (10:02)
[2020-12-14] MEDS: valACYclovir HCL 500 MG TABLET (FP) PO SCH ×2 (10:33→21:31)
[2020-12-14] MEDS: IBUPROFEN 400 MG TABLET (FP) PO PRN (14:37)
[2020-12-14] MEDS: THIAMINE HCL 100 MG TABLET (FP) PO SCH (21:30)
[2020-12-14] MEDS: ATORVASTATIN CA 10 MG TABLET (FP) PO SCH (21:31)
[2020-12-14] MEDS: LIDOCAINE PATCH REMOVAL MC SCH (21:32)
[2020-12-14] MEDS ORDERED: MELATONIN 5 MG TABLETS PO ONE (22:00)
[2020-12-15] MEDS: IBUPROFEN 400 MG TABLET (FP) PO PRN ×2 (06:24→15:00)
[2020-12-15] MEDS: CYCLOBENZAPRINE HCL 10 MG TABLET (FP) PO PRN ×2 (06:25→15:00)
[2020-12-15] MEDS: SIMETHICONE 80 MG TAB.CHEW (FP) PO PRN ×2 (06:25→21:38)
[2020-12-15] MEDS: OMEGA-3 ACID ETHYL ESTERS (FATTY-ACIDS) 1 GM CAPSULE (FP) PO SCH (10:30)
[2020-12-15] MEDS: amLODIPine BESYLATE 5 MG TABLET (FP) PO SCH (10:31)
[2020-12-15] MEDS: cloNIDine HCL 0.1 MG TABLET PO SCH ×2 (10:31→21:35)
[2020-12-15] MEDS: GABAPENTIN 300 MG CAPSULE PO SCH ×2 (10:31→21:32)
[2020-12-15] MEDS: PRENATAL VITAMINS W/ FOLIC ACID TABLET (FP) PO SCH (10:31)
[2020-12-15] MEDS: BUDESONIDE/FORMETEROL FUMARATE 160/4.5 mcg INHALER IH SCH ×2 (10:32→21:33)
[2020-12-15] MEDS: LIDOCAINE 5% TOPICAL PATCH TP SCH (10:32)
[2020-12-15] MEDS: PANTOPRAZOLE 40 MG TABLET PO SCH (10:32)
[2020-12-15] MEDS: valACYclovir HCL 500 MG TABLET (FP) PO SCH ×2 (10:32→21:38)
[2020-12-15] MEDS: LIDOCAINE PATCH REMOVAL MC SCH (21:33)
[2020-12-15] MEDS: ATORVASTATIN CA 10 MG TABLET (FP) PO SCH (21:33)
[2020-12-15] MEDS: THIAMINE HCL 100 MG TABLET (FP) PO SCH (21:33)
[2020-12-15] MEDS: METHYL SALICYLATE/MENTHOL OINT 30 GM TUBE TP SCH (21:34)
[2020-12-15] MEDS ORDERED: MELATONIN 5 MG TABLETS PO ONE (22:24)
[2020-12-16] MEDS: SIMETHICONE 80 MG TAB.CHEW (FP) PO PRN ×2 (05:50→09:46)
[2020-12-16] MEDS: CYCLOBENZAPRINE HCL 10 MG TABLET (FP) PO PRN (05:50)
[2020-12-16] MEDS: IBUPROFEN 400 MG TABLET (FP) PO PRN (05:50)
[2020-12-16 06:57] VITALS: TEMP 97.9
[2020-12-16 09:14] VITALS: BP 116/74; PULSE 81
[2020-12-16] MEDS ORDERED: PT OWN MED DRAWER 7, Y5N ONE (09:16)
[2020-12-16] MEDS: PRENATAL VITAMINS W/ FOLIC ACID TABLET (FP) PO SCH (09:44)
[2020-12-16] MEDS: PANTOPRAZOLE 40 MG TABLET PO SCH (09:44)
[2020-12-16] MEDS: LIDOCAINE 5% TOPICAL PATCH TP SCH (09:45)
[2020-12-16] MEDS: OMEGA-3 ACID ETHYL ESTERS (FATTY-ACIDS) 1 GM CAPSULE (FP) PO SCH (09:45)
[2020-12-16] MEDS: METHYL SALICYLATE/MENTHOL OINT 30 GM TUBE TP SCH (09:45)
[2020-12-16] MEDS: cloNIDine HCL 0.1 MG TABLET PO SCH (09:45)
[2020-12-16] MEDS: amLODIPine BESYLATE 5 MG TABLET (FP) PO SCH (09:45)
[2020-12-16] MEDS: GABAPENTIN 300 MG CAPSULE PO SCH (09:45)
[2020-12-16] MEDS: BUDESONIDE/FORMETEROL FUMARATE 160/4.5 mcg INHALER IH SCH (09:46)
[2020-12-16] MEDS: valACYclovir HCL 500 MG TABLET (FP) PO SCH (10:40)
== END 2020-12-16 09:51 | disposition home or self-care (01) | DRG 772 ==
LOC: YASAS 17:45 → Y3W 17:46
PROVIDERS: ADMIT Allergy & Immunology; ATTEND Allergy & Immunology
PROC: HZ42ZZZ Group Counseling for Substance Abuse Treatment, Cognitive-Behavioral (ICD-10-PCS; principal; 2020-12-10)
DX: F10.20 Alcohol dependence, uncomplicated (principal); F14.20 Cocaine dependence, uncomplicated; F31.9 Bipolar disorder, unspecified; F41.9 Anxiety disorder, unspecified; D64.9 Anemia, unspecified; D72.829 Elevated white blood cell count, unspecified; E78.5 Hyperlipidemia, unspecified; I10 Essential (primary) hypertension; J43.9 Emphysema, unspecified; J45.909 Unspecified asthma, uncomplicated; K21.9 Gastro-esophageal reflux disease without esophagitis; M10.9 Gout, unspecified; M54.32 Sciatica, left side; M41.9 Scoliosis, unspecified; M54.5 Low back pain; G89.29 Other chronic pain; B35.4 Tinea corporis; R73.03 Prediabetes; R10.13 Epigastric pain; Z86.11 Personal history of tuberculosis; Z88.8 Allergy status to other drugs, medicaments and biological substances; Z91.018 Allergy to other foods; Z91.011 Allergy to milk products; Z95.818 Presence of other cardiac implants and grafts; Z59.0 Homelessness
CPT/HCPCS: 93005; 93010; C9803; J0735; U0003

== ENCOUNTER 2022-05-28 12:53 | Inpatient (IN) | payer OTHER ==
[2022-05-28 13:42] VITALS: BMI 35.4
[2022-05-28] MEDS ORDERED: MAG HYDROX/AL HYDROX/SIMETH 30 ML UNIT-DOSE CUP PO PRN (14:02)
[2022-05-28] MEDS ORDERED: ACETAMINOPHEN 325 MG TABLET (FP) PO PRN ×2 (14:02)
[2022-05-28] MEDS ORDERED: BENZOCAINE/MENTHOL (CHLORASEPTIC ) LOZENGE MM PRN (14:02)
[2022-05-28] MEDS ORDERED: chlordiazePOXIDE HCL 25 MG CAPSULE PO PRN (14:02)
[2022-05-28] MEDS ORDERED: MAGNESIUM CITRATE 300 ML BOTTLE PO PRN (14:02)
[2022-05-28] MEDS ORDERED: LOPERAMIDE HCL 2 MG CAPSULE PO PRN (14:02)
[2022-05-28] MEDS ORDERED: DICYCLOMINE HCL 10 MG CAPSULE PO PRN (14:02)
[2022-05-28] MEDS ORDERED: IBUPROFEN 400 MG TABLET (FP) PO PRN (14:02)
[2022-05-28] MEDS ORDERED: MAGNESIUM HYDROX 2400MG/30ML ORAL SUSPENSION 30 ML CUP PO PRN (14:02)
[2022-05-28] MEDS ORDERED: BISMUTH SUBSALICYLATE 262 MG/15 ML BTL PO PRN (14:02)
[2022-05-28] MEDS ORDERED: ONDANSETRON *ODT* 4 MG TABLET SL PRN (14:02)
[2022-05-28] MEDS ORDERED: HYDROCORTISONE 1% TOPICAL OINT 30 GM TUBE TP PRN (14:16)
[2022-05-28] MEDS: NICOTINE 21 MG/24 HOURS TOPICAL PATCH TD SCH (14:44)
[2022-05-28] MEDS: chlordiazePOXIDE HCL 25 MG CAPSULE PO SCH ×2 (18:30→22:28)
[2022-05-28] MEDS: IBUPROFEN 600 MG TABLET (FP) PO PRN (18:31)
[2022-05-28] MEDS: METHOCARBAMOL 500 MG TABLET PO PRN (18:31)
[2022-05-28] MEDS: hydrOXYzine PAMOATE 25 MG CAPSULE (FP) PO SCH ×2 (18:32→22:29)
[2022-05-28] MEDS: THIAMINE HCL 100 MG TABLET (FP) PO SCH (22:28)
[2022-05-28] MEDS: valACYclovir HCL 500 MG TABLET (FP) PO SCH (22:28)
[2022-05-28] MEDS: MELATONIN 5 MG TABLETS PO SCH (22:29)
[2022-05-28] MEDS: PETROLATUM,WHITE OINTMENT 3.5 OZ JAR TP SCH (22:29)
[2022-05-29] MEDS: chlordiazePOXIDE HCL 25 MG CAPSULE PO SCH ×4 (06:38→22:39)
[2022-05-29] MEDS: hydrOXYzine PAMOATE 25 MG CAPSULE (FP) PO SCH ×5 (06:38→22:39)
[2022-05-29 10:36] LABS: HEMATOCRIT 41.5 % (32.4-45.2); HEMOGLOBIN 13.4 GM/dL (10.7-15.3); MCH 28.5 pg (25.7-33.7); MCHC 32.3 g/dl (32.0-36.0); MEAN CELL VOLUME 88.2 fl (80-96); MEAN PLT VOLUME 8.3 fl (7.5-11.1); PLATELET COUNT 247 10^3/uL (134-434); RDW 14.2 % (11.6-15.6); WHITE BLOOD COUNT 3.4 K/mm3 (4.0-10.0)
[2022-05-29 10:54] LABS: CALCIUM 9.1 mg/dL (8.5-10.1)
[2022-05-29 10:55] LABS: TOT PROT 6.3 g/dl (6.4-8.2)
[2022-05-29 10:56] LABS: BILIRUBIN,TOTAL 0.4 mg/dL (0.2-1)
[2022-05-29 10:57] LABS: CREATININE 0.7 mg/dL (0.55-1.3)
[2022-05-29] MEDS: PRENATAL VITAMINS W/ FOLIC ACID TABLET (FP) PO SCH (11:04)
[2022-05-29] MEDS: valACYclovir HCL 500 MG TABLET (FP) PO SCH ×2 (11:04→22:38)
[2022-05-29] MEDS: PETROLATUM,WHITE OINTMENT 3.5 OZ JAR TP SCH ×2 (11:04→22:38)
[2022-05-29] MEDS: METHOCARBAMOL 500 MG TABLET PO PRN (11:12)
[2022-05-29] MEDS: NICOTINE 21 MG/24 HOURS TOPICAL PATCH TD SCH (11:14)
[2022-05-29 11:29] LABS: HIV INTERPRETATION NEGATIVE (NEGATIVE)
[2022-05-29] MEDS: MELATONIN 5 MG TABLETS PO SCH (22:38)
[2022-05-29] MEDS: THIAMINE HCL 100 MG TABLET (FP) PO SCH (22:39)
[2022-05-30] MEDS ORDERED: ALBUTEROL SO4 HFA INHALER IH PRN (04:35)
[2022-05-30] MEDS: chlordiazePOXIDE HCL 25 MG CAPSULE PO SCH ×4 (06:08→23:24)
[2022-05-30] MEDS: hydrOXYzine PAMOATE 25 MG CAPSULE (FP) PO SCH ×6 (06:09→23:24)
[2022-05-30] MEDS: PRENATAL VITAMINS W/ FOLIC ACID TABLET (FP) PO SCH (10:58)
[2022-05-30] MEDS: METHOCARBAMOL 500 MG TABLET PO PRN (10:58)
[2022-05-30] MEDS: valACYclovir HCL 500 MG TABLET (FP) PO SCH ×2 (10:58→23:24)
[2022-05-30] MEDS: NICOTINE 21 MG/24 HOURS TOPICAL PATCH TD SCH (11:02)
[2022-05-30] MEDS: PETROLATUM,WHITE OINTMENT 3.5 OZ JAR TP SCH ×2 (11:02→23:23)
[2022-05-30] MEDS: MELATONIN 5 MG TABLETS PO SCH (23:23)
[2022-05-30] MEDS: THIAMINE HCL 100 MG TABLET (FP) PO SCH (23:24)
[2022-05-31] MEDS ORDERED: chlordiazePOXIDE HCL 10 MG CAPSULE PO PRN
[2022-05-31] MEDS: METHOCARBAMOL 500 MG TABLET PO PRN ×3 (03:55→22:47)
[2022-05-31] MEDS: IBUPROFEN 600 MG TABLET (FP) PO PRN ×3 (03:55→22:48)
[2022-05-31] MEDS: hydrOXYzine PAMOATE 25 MG CAPSULE (FP) PO SCH ×5 (06:00→22:47)
[2022-05-31] MEDS: chlordiazePOXIDE HCL 10 MG CAPSULE PO SCH ×4 (06:00→22:48)
[2022-05-31] MEDS: PETROLATUM,WHITE OINTMENT 3.5 OZ JAR TP SCH ×2 (10:39→22:50)
[2022-05-31] MEDS: NICOTINE 21 MG/24 HOURS TOPICAL PATCH TD SCH (10:39)
[2022-05-31] MEDS: PRENATAL VITAMINS W/ FOLIC ACID TABLET (FP) PO SCH (10:42)
[2022-05-31] MEDS: valACYclovir HCL 500 MG TABLET (FP) PO SCH ×2 (10:42→22:47)
[2022-05-31] MEDS ORDERED: ATORVASTATIN CA 10 MG TABLET (FP) PO SCH (22:00)
[2022-05-31] MEDS: BUDESONIDE/FORMETEROL FUMARATE 160/4.5 mcg INHALER IH SCH (22:46)
[2022-05-31] MEDS: MELATONIN 5 MG TABLETS PO SCH (22:48)
[2022-05-31] MEDS: THIAMINE HCL 100 MG TABLET (FP) PO SCH (22:50)
[2022-06-01] MEDS ORDERED: chlordiazePOXIDE HCL 10 MG CAPSULE PO SCH (05:00)
[2022-06-01] MEDS: hydrOXYzine PAMOATE 25 MG CAPSULE (FP) PO SCH (06:22)
[2022-06-01] MEDS: METHOCARBAMOL 500 MG TABLET PO PRN (06:23)
[2022-06-01] MEDS: IBUPROFEN 600 MG TABLET (FP) PO PRN (06:23)
[2022-06-01 09:09] VITALS: BP 138/76; PULSE 64; TEMP 98.1
[2022-06-01] MEDS: valACYclovir HCL 500 MG TABLET (FP) PO SCH (09:21)
[2022-06-01] MEDS: PRENATAL VITAMINS W/ FOLIC ACID TABLET (FP) PO SCH (09:23)
[2022-06-01] MEDS: BUDESONIDE/FORMETEROL FUMARATE 160/4.5 mcg INHALER IH SCH (09:23)
[2022-06-01] MEDS ORDERED: amLODIPine BESYLATE 5 MG TABLET (FP) PO SCH (10:00)
[2022-06-02] MEDS ORDERED: chlordiazePOXIDE HCL 10 MG CAPSULE PO ONE (05:00)
== END 2022-06-01 09:24 | disposition home or self-care (01) | DRG 774 ==
LOC: YASAS 12:53 → Y3N 14:21
PROVIDERS: ADMIT Allergy & Immunology; ATTEND Surgery
PROC: HZ2ZZZZ Detoxification Services for Substance Abuse Treatment (ICD-10-PCS; principal; 2022-05-28)
DX: F10.230 Alcohol dependence with withdrawal, uncomplicated (principal); F14.10 Cocaine abuse, uncomplicated; F16.10 Hallucinogen abuse, uncomplicated; F12.10 Cannabis abuse, uncomplicated; Q82.8 Other specified congenital malformations of skin; F19.24 Other psychoactive substance dependence with psychoactive substance-induced mood disorder; F31.9 Bipolar disorder, unspecified; E78.5 Hyperlipidemia, unspecified; I10 Essential (primary) hypertension; K21.9 Gastro-esophageal reflux disease without esophagitis; J43.9 Emphysema, unspecified; J45.20 Mild intermittent asthma, uncomplicated; M10.9 Gout, unspecified; M54.42 Lumbago with sciatica, left side; E66.9 Obesity, unspecified; Z68.35 Body mass index [BMI] 35.0-35.9, adult; Z95.818 Presence of other cardiac implants and grafts; Z86.11 Personal history of tuberculosis; Z88.8 Allergy status to other drugs, medicaments and biological substances
CPT/HCPCS: 36415; 71046-TC-FY; 80053; 81025; 84443; 85027; 86780; 87389; 87811; C9803-CS; U0003; U0005